=== PATIENT | male | born 1960 | race Caucasian/White ===

== ENCOUNTER 2017-07-19 16:55 | Inpatient (IN) | payer OTHER, MEDICAID ==
[~2017-07-19] VITALS: Ht 180.3 cm; Wt 84.8 kg
[~2017-07-19 16:55] MED LIST: CITA40TA22 PO; POTA-118 PO
[2017-07-19 17:00] VITALS: BP_SYST 124
[2017-07-19] MEDS ORDERED: NACL 0.9% 1,000 ML IV ONE ×2 (17:04→17:30)
[2017-07-19 17:45] LABS: CREATININE 2.3 mg/dL (0.55-1.30); POTASSIUM 4.4 mmol/L (3.5-5.1)
[2017-07-19 17:50] LABS: ALBUMIN 3.2 g/dL (3.4-4.8); TOTAL BILIRUBIN 1.1 mg/dL (0.0-1.0)
[2017-07-19 17:51] LABS: BASOPHILS % (AUTO) 0.3 % (0.0-2.0); EOSINOPHILS # (AUTO) 0.3 K/uL (0.0-0.4); EOSINOPHILS % (AUTO) 3.3 % (0.0-4.0); HEMATOCRIT 32.9 % (36-54); HEMOGLOBIN 11.2 g/dL (14.0-18.0); LYMPHOCYTES % (AUTO) 12.7 % (20.5-51.5); MEAN CORPUSCULAR HEMOGLOBIN 29 pg (27-31); MEAN CORPUSCULAR HGB CONC 34 % (32-36); MEAN CORPUSCULAR VOLUME 86 fL (79.0-98.0); MONOCYTES # (AUTO) 0.1 K/uL (0.0-1.0); MONOCYTES % (AUTO) 1.4 % (1.7-9.3); NEUTROPHILS # (AUTO) 6.8 K/uL (1.8-7.7); NEUTROPHILS % (AUTO) 82.3 % (40.0-70.0); PLATELET COUNT (AUTO) 233 K/uL (130-430); RED BLOOD CELL COUNT(AUTO) 3.83 MIL/uL (4.2-6.2); WHITE BLOOD COUNT (AUTO) 8.2 K/uL (4.8-10.8)
[2017-07-19 19:01] LABS: BILIRUBIN,URINE NEGATIVE (NEGATIVE); BLOOD, URINE NEGATIVE (NEGATIVE); CLARITY/URINE CLEAR (CLEAR); COLOR,URINE YELLOW (YELLOW); GLUCOSE,URINE NEGATIVE (NEGATIVE); KETONES,URINE NEGATIVE (NEGATIVE); LEUKOCYTE ESTERASE ,URINE NEGATIVE (NEGATIVE); NITRITE, URINE NEGATIVE (NEGATIVE); PH,URINE 5.5 (5.0-8.0); PROTEIN URINE NEGATIVE (NEGATIVE); UROBILINOGEN,URINE 0.2 (0.2-1.0)
[2017-07-19] MEDS ORDERED: PRED5TAB PO (19:09)
[2017-07-19] MEDS ORDERED: HYD10 PO (19:09)
[2017-07-19] MEDS ORDERED: COR12.5 PO (19:09)
[2017-07-19] MEDS ORDERED: [UNRECOGNIZED DRUG - CODE] PO (19:10)
[2017-07-19] MEDS ORDERED: ACETAMINOPHEN 325 MG TABLET PO PRN ×2 (19:30→19:45)
[2017-07-19] MEDS ORDERED: MORPHINE 2 MG/ML INJ. SYRINGE IVP PRN ×2 (19:30→19:45)
[2017-07-19] MEDS ORDERED: NACL 0.9% 1,000 ML IV SCH (19:33)
[2017-07-19 20:02] VITALS: BP_SYST 141
[2017-07-19] MEDS ORDERED: DOCUSATE SODIUM 100 MG CAPSULE PO SCH (21:00)
[2017-07-19] MEDS: DOCUSATE SODIUM 100 MG CAPSULE PO SCH (21:00)
[2017-07-19] MEDS ORDERED: BISACODYL 10 MG/SUPPOSITORY RC PRN (21:45)
[2017-07-19] MEDS ORDERED: HYDROcodone/ACETAMIN 10-325 MG TAB PO PRN (21:45)
[2017-07-19] MEDS ORDERED: POTASSIUM CHLORIDE 20 MEQ TAB.PRT.SR PO PRN (21:45)
[2017-07-19] MEDS ORDERED: SIMETHICONE 80 MG TAB.CHEW PO PRN (21:45)
[2017-07-19] MEDS ORDERED: LORazepam 2 MG/ML VIAL IVP PRN (21:45)
[2017-07-19] MEDS: NACL 0.9% 1,000 ML IV SCH (22:42)
[2017-07-19] MEDS: ONDANSETRON HCL 4 MG/2 ML VIAL IVP PRN (22:51)
[2017-07-20 00:59] VITALS: BP_SYST 126
[2017-07-20] MEDS: ZOLPIDEM TARTRATE 5 MG TABLET PO PRN (01:57)
[2017-07-20 04:32] VITALS: BP_SYST 130
[2017-07-20 07:52] LABS: BASOPHILS % (AUTO) 0.4 % (0.0-2.0); EOSINOPHILS # (AUTO) 0.2 K/uL (0.0-0.4); EOSINOPHILS % (AUTO) 2.9 % (0.0-4.0); HEMATOCRIT 30.3 % (36-54); HEMOGLOBIN 9.8 g/dL (14.0-18.0); LYMPHOCYTES # (AUTO) 0.7 K/uL (1.0-5.5); LYMPHOCYTES % (AUTO) 13.2 % (20.5-51.5); MEAN CORPUSCULAR HEMOGLOBIN 28 pg (27-31); MEAN CORPUSCULAR HGB CONC 33 % (32-36); MEAN CORPUSCULAR VOLUME 87 fL (79.0-98.0); MONOCYTES # (AUTO) 0.1 K/uL (0.0-1.0); MONOCYTES % (AUTO) 1.8 % (1.7-9.3); NEUTROPHILS # (AUTO) 4.6 K/uL (1.8-7.7); NEUTROPHILS % (AUTO) 81.7 % (40.0-70.0); PLATELET COUNT (AUTO) 211 K/uL (130-430); RED BLOOD CELL COUNT(AUTO) 3.49 MIL/uL (4.2-6.2); RED CELL DISTRIBUTION WIDTH 13.7 % (9.0-15.0); WHITE BLOOD COUNT (AUTO) 5.6 K/uL (4.8-10.8)
[2017-07-20 08:00] VITALS: BP_SYST 124
[2017-07-20 08:22] LABS: ALBUMIN 2.6 g/dL (3.4-4.8); CALCIUM 7.5 mg/dL (8.4-11.0); CREATININE 2.16 mg/dL (0.55-1.30); FREE T4 (FREE THYROXINE) 0.8 ng/dL (0.6-1.6); POTASSIUM 3.9 mmol/L (3.5-5.1); THYROID STIMULATING HORMONE 0.67 uIu/mL (0.34-4.82); TOTAL BILIRUBIN 0.9 mg/dL (0.0-1.0)
[2017-07-20] MEDS: DOCUSATE SODIUM 100 MG CAPSULE PO SCH ×2 (09:00→21:00)
[2017-07-20] MEDS: NACL 0.9% 1,000 ML IV SCH ×2 (09:26→23:48)
[2017-07-20 12:58] VITALS: BP_SYST 130
[2017-07-20] MEDS ORDERED: [UNRECOGNIZED DRUG - OTHER] PO SCH (13:00)
[2017-07-20] MEDS: HYDROCORTISONE 10 MG TABLET (CORTEF) PO SCH ×2 (15:06→22:06)
[2017-07-20 16:42] VITALS: BP_SYST 138
[2017-07-20] MEDS: CARVEDILOL 12.5 MG TABLET (COREG) PO SCH (17:49)
[2017-07-20] MEDS ORDERED: VANCOMYCIN HCL 1,250 MG in NS 250 ML IV ONE (20:30)
[2017-07-20 22:04] VITALS: BP_SYST 107
[2017-07-20] MEDS: PREDNISONE 5 MG TABLET PO SCH (22:06)
[2017-07-20] MEDS ORDERED: VANCOMYCIN HCL 1000 MG/VIAL IV ONE (22:33)
[2017-07-20] MEDS ORDERED: VANCOMYCIN HCL 500 MG/VIAL IV ONE ×2 (22:33→22:35)
[2017-07-21] VITALS (7 sets, daily range): BP systolic 94–115
[2017-07-21] MEDS: ONDANSETRON HCL 4 MG/2 ML VIAL IVP PRN (00:41)
[2017-07-21] MEDS ORDERED: PIPERACILLIN/TAZOBACTAM 3.375 GM/VIAL (ZOSYN) IV ONE (01:49)
[2017-07-21] MEDS: NACL 0.9% 1,000 ML IV SCH ×4 (02:20→23:07)
[2017-07-21] MEDS: PIPERACILLIN/TAZO 3.375/DEX-IS 50 ML IV SCH ×6 (06:00→23:02)
[2017-07-21 06:07] LABS: HEMOGLOBIN A1C 5.6 % (4.8-5.6)
[2017-07-21 08:06] LABS: T4 (THYROXINE) 2.4 ug/dL (4.5-12.0)
[2017-07-21 08:39] LABS: BASOPHILS % (AUTO) 0.4 % (0.0-2.0); EOSINOPHILS # (AUTO) 0.3 K/uL (0.0-0.4); EOSINOPHILS % (AUTO) 6.3 % (0.0-4.0); HEMATOCRIT 29.9 % (36-54); LYMPHOCYTES # (AUTO) 0.6 K/uL (1.0-5.5); LYMPHOCYTES % (AUTO) 14.8 % (20.5-51.5); MEAN CORPUSCULAR HEMOGLOBIN 29 pg (27-31); MEAN CORPUSCULAR HGB CONC 34 % (32-36); MEAN CORPUSCULAR VOLUME 87 fL (79.0-98.0); MONOCYTES # (AUTO) 0.1 K/uL (0.0-1.0); MONOCYTES % (AUTO) 2.8 % (1.7-9.3); NEUTROPHILS # (AUTO) 3.1 K/uL (1.8-7.7); NEUTROPHILS % (AUTO) 75.7 % (40.0-70.0); PLATELET COUNT (AUTO) 228 K/uL (130-430); RED BLOOD CELL COUNT(AUTO) 3.43 MIL/uL (4.2-6.2); RED CELL DISTRIBUTION WIDTH 13.5 % (9.0-15.0); WHITE BLOOD COUNT (AUTO) 4.1 K/uL (4.8-10.8)
[2017-07-21] MEDS: DOCUSATE SODIUM 100 MG CAPSULE PO SCH ×3 (09:00→20:58)
[2017-07-21] MEDS: POTASSIUM CHLORIDE 10 MEQ TAB.PRT.SR PO SCH (09:06)
[2017-07-21] MEDS: PREDNISONE 5 MG TABLET PO SCH ×2 (09:06→20:58)
[2017-07-21] MEDS: CITALOPRAM HYDROBROMIDE 20 MG TABLET PO SCH (09:06)
[2017-07-21] MEDS: HYDROCORTISONE 10 MG TABLET (CORTEF) PO SCH ×3 (09:06→20:58)
[2017-07-21] MEDS: CARVEDILOL 12.5 MG TABLET (COREG) PO SCH ×2 (09:07→18:05)
[2017-07-21] MEDS ORDERED: VANCOMYCIN HCL 1,000 MG in NS 250 ML IV SCH (14:00)
[2017-07-21] MEDS: ASPIRIN 325 MG TABLET PO PRN (18:05)
[2017-07-21] MEDS: ZOLPIDEM TARTRATE 5 MG TABLET PO PRN (22:52)
[2017-07-22] VITALS: BP_SYST 110; BP_SYST 111
[2017-07-22 04:00] VITALS: BP_SYST 104; BP_SYST 110
[2017-07-22] MEDS: PIPERACILLIN/TAZO 3.375/DEX-IS 50 ML IV SCH ×3 (05:50→17:37)
[2017-07-22 06:32] LABS: BASOPHILS % (AUTO) 0.6 % (0.0-2.0); EOSINOPHILS # (AUTO) 0.3 K/uL (0.0-0.4); HEMATOCRIT 25.6 % (36-54); HEMOGLOBIN 8.5 g/dL (14.0-18.0); LYMPHOCYTES # (AUTO) 0.7 K/uL (1.0-5.5); LYMPHOCYTES % (AUTO) 23.2 % (20.5-51.5); MEAN CORPUSCULAR HEMOGLOBIN 29 pg (27-31); MEAN CORPUSCULAR HGB CONC 33 % (32-36); MEAN CORPUSCULAR VOLUME 87 fL (79.0-98.0); MONOCYTES # (AUTO) 0.2 K/uL (0.0-1.0); MONOCYTES % (AUTO) 6.7 % (1.7-9.3); NEUTROPHILS # (AUTO) 1.8 K/uL (1.8-7.7); NEUTROPHILS % (AUTO) 58.5 % (40.0-70.0); PLATELET COUNT (AUTO) 218 K/uL (130-430); RED BLOOD CELL COUNT(AUTO) 2.95 MIL/uL (4.2-6.2); RED CELL DISTRIBUTION WIDTH 13.8 % (9.0-15.0)
[2017-07-22 08:00] VITALS: BP_SYST 107
[2017-07-22] MEDS: CITALOPRAM HYDROBROMIDE 20 MG TABLET PO SCH (08:35)
[2017-07-22] MEDS: CARVEDILOL 12.5 MG TABLET (COREG) PO SCH ×2 (08:35→17:38)
[2017-07-22] MEDS: HYDROCORTISONE 10 MG TABLET (CORTEF) PO SCH ×3 (08:36→21:11)
[2017-07-22] MEDS: DOCUSATE SODIUM 100 MG CAPSULE PO SCH ×3 (08:36→21:11)
[2017-07-22] MEDS: PREDNISONE 5 MG TABLET PO SCH ×2 (08:36→21:11)
[2017-07-22] MEDS: POTASSIUM CHLORIDE 10 MEQ TAB.PRT.SR PO SCH (08:36)
[2017-07-22] MEDS: NACL 0.9% 1,000 ML IV SCH ×3 (08:37→23:48)
[2017-07-22 12:41] VITALS: BP_SYST 104
[2017-07-22] MEDS: ASPIRIN 325 MG TABLET PO PRN (15:56)
[2017-07-22 16:31] VITALS: BP_SYST 114
[2017-07-22 23:58] VITALS: BP_SYST 127
[2017-07-23] MEDS: PIPERACILLIN/TAZO 3.375/DEX-IS 50 ML IV SCH ×4 (00:11→18:35)
[2017-07-23 04:01] VITALS: BP_SYST 127
[2017-07-23 06:19] LABS: HEMOGLOBIN 8.2 g/dL (14.0-18.0); MEAN CORPUSCULAR HEMOGLOBIN 28 pg (27-31); MEAN CORPUSCULAR HGB CONC 33 % (32-36); MEAN CORPUSCULAR VOLUME 86 fL (79.0-98.0); PLATELET COUNT (AUTO) 268 K/uL (130-430); RED CELL DISTRIBUTION WIDTH 13.9 % (9.0-15.0); WHITE BLOOD COUNT (AUTO) 2.8 K/uL (4.8-10.8)
[2017-07-23 07:46] VITALS: BP_SYST 138
[2017-07-23 08:00] VITALS: BP_SYST 138
[2017-07-23 08:19] LABS: LYMPHOCYTES % (MANUAL) 17 % (20-46)
[2017-07-23 08:20] LABS: BASOPHILS % (MANUAL) 0 % (0-2); EOSINOPHILS % (MANUAL) 13 % (0-7); MONOCYTES % (MANUAL) 5 % (0-11)
[2017-07-23] MEDS: [UNRECOGNIZED DRUG - OTHER] PO SCH ×4 (09:00→21:55)
[2017-07-23] MEDS: DOCUSATE SODIUM 100 MG CAPSULE PO SCH ×2 (09:00→21:00)
[2017-07-23] MEDS: PREDNISONE 5 MG TABLET PO SCH ×2 (09:48→21:55)
[2017-07-23] MEDS: CITALOPRAM HYDROBROMIDE 20 MG TABLET PO SCH (09:48)
[2017-07-23] MEDS: HYDROCORTISONE 10 MG TABLET (CORTEF) PO SCH ×3 (09:49→21:55)
[2017-07-23] MEDS: CARVEDILOL 12.5 MG TABLET (COREG) PO SCH ×2 (09:49→18:36)
[2017-07-23] MEDS: POTASSIUM CHLORIDE 10 MEQ TAB.PRT.SR PO SCH (09:49)
[2017-07-23 11:13] VITALS: BP_SYST 128
[2017-07-23] MEDS: NACL 0.9% 1,000 ML IV SCH (14:06)
[2017-07-23] MEDS: ASPIRIN 325 MG TABLET PO PRN (16:01)
[2017-07-23 16:15] VITALS: BP_SYST 130
[2017-07-23 23:56] VITALS: BP_SYST 122
[2017-07-24] MEDS: PIPERACILLIN/TAZO 3.375/DEX-IS 50 ML IV SCH ×2 (00:16→06:51)
[2017-07-24 04:26] VITALS: BP_SYST 133
[2017-07-24] MEDS: NACL 0.9% 1,000 ML IV SCH (04:49)
[2017-07-24 06:33] LABS: BASOPHILS % (AUTO) 0.7 % (0.0-2.0); EOSINOPHILS # (AUTO) 0.3 K/uL (0.0-0.4); EOSINOPHILS % (AUTO) 8.6 % (0.0-4.0); HEMOGLOBIN 8.5 g/dL (14.0-18.0); LYMPHOCYTES # (AUTO) 0.9 K/uL (1.0-5.5); LYMPHOCYTES % (AUTO) 25.9 % (20.5-51.5); MEAN CORPUSCULAR HEMOGLOBIN 29 pg (27-31); MEAN CORPUSCULAR HGB CONC 33 % (32-36); MEAN CORPUSCULAR VOLUME 88 fL (79.0-98.0); MONOCYTES # (AUTO) 0.3 K/uL (0.0-1.0); MONOCYTES % (AUTO) 8.1 % (1.7-9.3); NEUTROPHILS # (AUTO) 2.2 K/uL (1.8-7.7); NEUTROPHILS % (AUTO) 56.7 % (40.0-70.0); PLATELET COUNT (AUTO) 298 K/uL (130-430); RED BLOOD CELL COUNT(AUTO) 2.98 MIL/uL (4.2-6.2); RED CELL DISTRIBUTION WIDTH 13.9 % (9.0-15.0); WHITE BLOOD COUNT (AUTO) 3.7 K/uL (4.8-10.8)
[2017-07-24 08:16] VITALS: BP_SYST 149
[2017-07-24] MEDS: CITALOPRAM HYDROBROMIDE 20 MG TABLET PO SCH (08:21)
[2017-07-24] MEDS: HYDROCORTISONE 10 MG TABLET (CORTEF) PO SCH (08:22)
[2017-07-24] MEDS: POTASSIUM CHLORIDE 10 MEQ TAB.PRT.SR PO SCH (08:23)
[2017-07-24] MEDS: DOCUSATE SODIUM 100 MG CAPSULE PO SCH (08:24)
[2017-07-24] MEDS: PREDNISONE 5 MG TABLET PO SCH (08:24)
[2017-07-24] MEDS: CARVEDILOL 12.5 MG TABLET (COREG) PO SCH (08:25)
[2017-07-24] MEDS: [UNRECOGNIZED DRUG - OTHER] PO SCH (08:27)
[2017-07-24] MEDS ORDERED: LEVO250T20 PO (09:19)
[2017-07-24] MEDS ORDERED: DOXY100T2 PO (09:19)
[2017-07-24 11:15] VITALS: BP_SYST 139
[2017-07-24 12:16] VITALS: BP_SYST 134
== END 2017-07-24 13:16 | disposition home or self-care (01) | DRG 177 ==
LOC: SED 16:55 → STU 19:26 → SMU 07-20 14:16
PROVIDERS: ADMIT Family Medicine; ATTEND Family Medicine
DX: J69.0 Pneumonitis due to inhalation of food and vomit (principal); E43 Unspecified severe protein-calorie malnutrition; N17.0 Acute kidney failure with tubular necrosis; D89.9 Disorder involving the immune mechanism, unspecified; C78.7 Secondary malignant neoplasm of liver and intrahepatic bile duct; R78.81 Bacteremia; C74.90 Malignant neoplasm of unspecified part of unspecified adrenal gland; R16.0 Hepatomegaly, not elsewhere classified; E87.1 Hypo-osmolality and hyponatremia; N13.30 Unspecified hydronephrosis; B96.89 Other specified bacterial agents as the cause of diseases classified elsewhere; E86.0 Dehydration; N13.9 Obstructive and reflux uropathy, unspecified; G89.4 Chronic pain syndrome; I10 Essential (primary) hypertension; R33.9 Retention of urine, unspecified; F32.9 Major depressive disorder, single episode, unspecified; Z79.899 Other long term (current) drug therapy; Z91.010 Allergy to peanuts; Z68.26 Body mass index [BMI] 26.0-26.9, adult
CPT/HCPCS: 36415; 71010; 71250-TC; 80053; 80061; 81003; 82150-TC; 83036; 83605; 83690-TC; 83735-TC; 83880; 84100-TC; 84436; 84439; 84443-TC; 84479; 85007; 85025; 85027; 85610-TC; 86635; 86738; 87040-TC; 87070-TC; 87081; 87101; 87205-TC; 87305; 93306; 96360; 96361; 99285; J0696; J2405; J2543; J3370; J7030; J7050; J7060; J7512

== ENCOUNTER 2017-10-21 00:24 | Inpatient (IN) | payer OTHER, MEDICAID ==
[~2017-10-21] VITALS: Ht 180.3 cm; Wt 89.4 kg
[2017-10-21 00:24] VITALS: BP_SYST 120
[~2017-10-21 00:24] MED LIST changes: +ASPI-862 PO; +COR12.5 PO; +DEC4 PO; +HYD10 PO; -POTA-118 PO; +PRED5TAB PO; +PROCHLORPER PO; +[UNRECOGNIZED DRUG - CODE] PO
[2017-10-21] MEDS ORDERED: NACL 0.9% 1,000 ML IV SCH (01:21)
[2017-10-21 01:40] LABS: BILIRUBIN,URINE NEGATIVE (NEGATIVE); BLOOD, URINE 3+ (NEGATIVE); CLARITY/URINE CLEAR (CLEAR); COLOR,URINE YELLOW (YELLOW); GLUCOSE,URINE NEGATIVE (NEGATIVE); KETONES,URINE NEGATIVE (NEGATIVE); LEUKOCYTE ESTERASE ,URINE NEGATIVE (NEGATIVE); NITRITE, URINE NEGATIVE (NEGATIVE); PROTEIN URINE TRACE (NEGATIVE); UROBILINOGEN,URINE 0.2 (0.2-1.0)
[2017-10-21 01:40] LABS: BASOPHILS % (AUTO) 0.2 % (0.0-2.0); EOSINOPHILS # (AUTO) 0.1 K/uL (0.0-0.4); EOSINOPHILS % (AUTO) 1.2 % (0.0-4.0); HEMATOCRIT 35.9 % (36-54); HEMOGLOBIN 11.9 g/dL (14.0-18.0); LYMPHOCYTES # (AUTO) 0.4 K/uL (1.0-5.5); LYMPHOCYTES % (AUTO) 5.9 % (20.5-51.5); MEAN CORPUSCULAR HEMOGLOBIN 31 pg (27-31); MEAN CORPUSCULAR HGB CONC 33 % (32-36); MEAN CORPUSCULAR VOLUME 92 fL (79.0-98.0); MONOCYTES # (AUTO) 0.4 K/uL (0.0-1.0); MONOCYTES % (AUTO) 6.5 % (1.7-9.3); NEUTROPHILS # (AUTO) 5.5 K/uL (1.8-7.7); NEUTROPHILS % (AUTO) 86.2 % (40.0-70.0); PLATELET COUNT (AUTO) 192 K/uL (130-430); RED BLOOD CELL COUNT(AUTO) 3.89 MIL/uL (4.2-6.2); RED CELL DISTRIBUTION WIDTH 15.7 % (9.0-15.0); WHITE BLOOD COUNT (AUTO) 6.4 K/uL (4.8-10.8)
[2017-10-21 01:42] LABS: CALCIUM 8.1 mg/dL (8.4-11.0); CREATININE 1.71 mg/dL (0.55-1.30)
[2017-10-21 01:45] LABS: BACTERIA,URINE MODERATE /HPF (None Seen); MUCUS,URINE 1+ /LPF (None Seen); RBC,URINE 20-50 /HPF (0-3); WBC,URINE 0-3 /HPF (0-3)
[2017-10-21 01:48] LABS: ALBUMIN 2.5 g/dL (3.4-4.8); TOTAL BILIRUBIN 0.2 mg/dL (0.0-1.0)
[2017-10-21] MEDS ORDERED: PROC10TA13 PO (03:04)
[2017-10-21] MEDS ORDERED: L.RH1CAP PO (03:04)
[2017-10-21] MEDS ORDERED: methylPREDNISolone SOD SUCC/PF 62.5 MG/ML VIAL IVP ONE (03:45)
[2017-10-21] MEDS ORDERED: LEVOFLOXACIN 500 MG/D5W 100 ML IV ONE ×2 (04:00→05:19)
[2017-10-21] MEDS ORDERED: cefTRIAXone 1 GM in D5W 50 ML IV ONE (04:00)
[2017-10-21 04:17] VITALS: BP_SYST 134
[2017-10-21] MEDS: NACL 0.9% 1,000 ML IV SCH ×2 (04:42→14:07)
[2017-10-21] MEDS ORDERED: cefTRIAXone 1 GM IVPB PREMIX 50 ML IV ONE (05:20)
[2017-10-21 08:00] VITALS: BP_SYST 137
[2017-10-21] MEDS: CARVEDILOL 12.5 MG TABLET (COREG) PO SCH ×2 (08:23→17:15)
[2017-10-21] MEDS: DECADRON 4 MG TABLET PO SCH ×2 (08:24→21:05)
[2017-10-21] MEDS: HYDROCORTISONE 10 MG TABLET (CORTEF) PO SCH ×3 (08:24→21:05)
[2017-10-21] MEDS: ASPIRIN 325 MG TABLET (ECOTRIN) PO SCH (08:24)
[2017-10-21] MEDS: LACTOBACILLUS RHAMNOSUS GG 1 CAP CAPSULE PO SCH (08:24)
[2017-10-21] MEDS: PROCHLORPERAZINE MALEATE 10 MG TABLET PO SCH ×3 (08:24→21:06)
[2017-10-21] MEDS: CITALOPRAM HYDROBROMIDE 20 MG TABLET PO SCH (08:24)
[2017-10-21] MEDS: PREDNISONE 5 MG TABLET PO SCH ×2 (08:25→21:05)
[2017-10-21] MEDS: [UNRECOGNIZED DRUG - OTHER] PO SCH ×4 (09:00→21:07)
[2017-10-21 12:15] VITALS: BP_SYST 109
[2017-10-21 16:14] VITALS: BP_SYST 127
[2017-10-21 20:00] VITALS: BP_SYST 108
[2017-10-21] MEDS ORDERED: cefTRIAXone 1 GM in D5W 50 ML IV SCH (21:00)
[2017-10-22 00:21] VITALS: BP_SYST 117
[2017-10-22] MEDS: NACL 0.9% 1,000 ML IV SCH (04:13)
[2017-10-22 06:15] LABS: BASOPHILS % (AUTO) 0.2 % (0.0-2.0); EOSINOPHILS # (AUTO) 0.1 K/uL (0.0-0.4); HEMATOCRIT 37.7 % (36-54); HEMOGLOBIN 12.5 g/dL (14.0-18.0); LYMPHOCYTES # (AUTO) 0.7 K/uL (1.0-5.5); LYMPHOCYTES % (AUTO) 9.8 % (20.5-51.5); MEAN CORPUSCULAR HEMOGLOBIN 31 pg (27-31); MEAN CORPUSCULAR HGB CONC 33 % (32-36); MEAN CORPUSCULAR VOLUME 94 fL (79.0-98.0); MONOCYTES # (AUTO) 0.6 K/uL (0.0-1.0); MONOCYTES % (AUTO) 7.6 % (1.7-9.3); NEUTROPHILS # (AUTO) 5.9 K/uL (1.8-7.7); NEUTROPHILS % (AUTO) 81.4 % (40.0-70.0); PLATELET COUNT (AUTO) 206 K/uL (130-430); RED BLOOD CELL COUNT(AUTO) 4.01 MIL/uL (4.2-6.2); WHITE BLOOD COUNT (AUTO) 7.3 K/uL (4.8-10.8)
[2017-10-22 06:35] LABS: ALBUMIN 2.6 g/dL (3.4-4.8); CALCIUM 9.1 mg/dL (8.4-11.0); CREATININE 1.75 mg/dL (0.55-1.30); FREE T4 (FREE THYROXINE) 0.8 ng/dL (0.6-1.6); TOTAL BILIRUBIN 0.1 mg/dL (0.0-1.0)
[2017-10-22 08:00] VITALS: BP_SYST 117
[2017-10-22] MEDS ORDERED: LEVOFLOXACIN 500 MG/D5W 100 ML IV SCH (09:00)
[2017-10-22] MEDS: HYDROCORTISONE 10 MG TABLET (CORTEF) PO SCH (09:14)
[2017-10-22] MEDS: DECADRON 4 MG TABLET PO SCH (09:14)
[2017-10-22] MEDS: LACTOBACILLUS RHAMNOSUS GG 1 CAP CAPSULE PO SCH (09:14)
[2017-10-22] MEDS: ASPIRIN 325 MG TABLET (ECOTRIN) PO SCH (09:14)
[2017-10-22] MEDS: CITALOPRAM HYDROBROMIDE 20 MG TABLET PO SCH (09:14)
[2017-10-22] MEDS: CARVEDILOL 12.5 MG TABLET (COREG) PO SCH (09:15)
[2017-10-22] MEDS: [UNRECOGNIZED DRUG - OTHER] PO SCH ×2 (09:16→14:42)
[2017-10-22] MEDS: PREDNISONE 5 MG TABLET PO SCH (09:23)
[2017-10-22] MEDS: PROCHLORPERAZINE MALEATE 10 MG TABLET PO SCH ×2 (09:35→14:42)
[2017-10-22 12:00] VITALS: BP_SYST 124
[2017-10-22 15:58] VITALS: BP_SYST 135
[2017-10-22 16:33] VITALS: BP_SYST 117
== END 2017-10-22 19:54 | disposition home or self-care (01) | DRG 871 ==
LOC: SED 00:24 → SMU 03:33
PROVIDERS: ADMIT Internal Medicine; ATTEND Internal Medicine
DX: A41.9 Sepsis, unspecified organism (principal); E43 Unspecified severe protein-calorie malnutrition; C78.7 Secondary malignant neoplasm of liver and intrahepatic bile duct; E89.6 Postprocedural adrenocortical (-medullary) hypofunction; N31.9 Neuromuscular dysfunction of bladder, unspecified; N39.0 Urinary tract infection, site not specified; E86.0 Dehydration; I12.9 Hypertensive chronic kidney disease with stage 1 through stage 4 chronic kidney disease, or unspecified chronic kidney disease; N18.9 Chronic kidney disease, unspecified; F32.9 Major depressive disorder, single episode, unspecified; F41.9 Anxiety disorder, unspecified; Z68.27 Body mass index [BMI] 27.0-27.9, adult; E66.9 Obesity, unspecified; Z91.010 Allergy to peanuts; Z79.899 Other long term (current) drug therapy; Z79.82 Long term (current) use of aspirin; Z85.858 Personal history of malignant neoplasm of other endocrine glands; Z90.5 Acquired absence of kidney; Z92.21 Personal history of antineoplastic chemotherapy
CPT/HCPCS: 36415; 80053; 81000-TC; 83605; 84439; 85025; 87040-TC; 87081; 87086; 96360; 99285; J0696; J1956; J2930; J7030; J7040; J7060; J7512; J8540; Q0164

== ENCOUNTER 2017-10-27 14:55 | Emergency (ER) | payer OTHER, MEDICAID ==
[~2017-10-27] VITALS: Ht 180.3 cm; Wt 88.5 kg
[~2017-10-27 14:55] MED LIST changes: +L.RH1CAP PO; +PROC10TA PO
[2017-10-27 15:02] VITALS: BP_SYST 118
--- NOTE | 2017-10-27 15:12 | NUR ---
Patient to ER bed 6 to gown for evaluation. Side rails up. Report given to Melo MCCORMACK.
--- NOTE | 2017-10-27 15:13 | NUR ---
ER at bedside examining patient.
--- NOTE | 2017-10-27 15:15 | NUR ---
Pt presents to ER c/o suspected UTI. Pt also c/o nausea, general weakness. Pt denies any pain but c/o tightness in abdomen. Pt reports that he was admitted to [facility] recently for UTI and has had UTI x 3 times since New Years Marcy. Pt reports history of adrenal carcinoma, HTN. Pt in no acute distress, respirations even and unlabored, VSS, AOX4.
[2017-10-27 15:35] LABS: BASOPHILS % (AUTO) 0.3 % (0.0-2.0); EOSINOPHILS % (AUTO) 0.8 % (0.0-4.0); HEMATOCRIT 37.8 % (36-54); HEMOGLOBIN 12.6 g/dL (14.0-18.0); LYMPHOCYTES # (AUTO) 0.4 K/uL (1.0-5.5); LYMPHOCYTES % (AUTO) 6.4 % (20.5-51.5); MEAN CORPUSCULAR HEMOGLOBIN 31 pg (27-31); MEAN CORPUSCULAR HGB CONC 33 % (32-36); MEAN CORPUSCULAR VOLUME 91 fL (79.0-98.0); MONOCYTES # (AUTO) 0.4 K/uL (0.0-1.0); MONOCYTES % (AUTO) 6.7 % (1.7-9.3); NEUTROPHILS # (AUTO) 5.1 K/uL (1.8-7.7); NEUTROPHILS % (AUTO) 85.8 % (40.0-70.0); PLATELET COUNT (AUTO) 233 K/uL (130-430); RED BLOOD CELL COUNT(AUTO) 4.15 MIL/uL (4.2-6.2); RED CELL DISTRIBUTION WIDTH 14.4 % (9.0-15.0); WHITE BLOOD COUNT (AUTO) 5.9 K/uL (4.8-10.8)
--- NOTE | 2017-10-27 15:40 | NUR ---
# 20 gauge angiocath placed to LAC. Use of asceptic technique. Opsite placed over site. Blood return noted. Flushed with 10 cc of normal saline. No evidence of infiltration noted. Patient tolerated well.
[2017-10-27 15:49] LABS: CALCIUM 8.6 mg/dL (8.4-11.0); CREATININE 2.06 mg/dL (0.55-1.30); INR 0.9 (0.80-1.20); POTASSIUM 4.9 mmol/L (3.5-5.1); PROTHROMBIN TIME 9.5 SECS (9.5-12.5)
[2017-10-27 15:53] LABS: ALBUMIN 2.7 g/dL (3.4-4.8); TOTAL BILIRUBIN 0.2 mg/dL (0.0-1.0)
[2017-10-27 15:56] LABS: BILIRUBIN,URINE NEGATIVE (NEGATIVE); BLOOD, URINE 3+ (NEGATIVE); CLARITY/URINE SL HAZY (CLEAR); COLOR,URINE YELLOW (YELLOW); GLUCOSE,URINE NEGATIVE (NEGATIVE); KETONES,URINE NEGATIVE (NEGATIVE); LEUKOCYTE ESTERASE ,URINE NEGATIVE (NEGATIVE); NITRITE, URINE NEGATIVE (NEGATIVE); PROTEIN URINE TRACE (NEGATIVE); UROBILINOGEN,URINE 0.2 (0.2-1.0)
[2017-10-27 16:28] LABS: BACTERIA,URINE FEW /HPF (None Seen); WBC,URINE 0-3 /HPF (0-3)
[2017-10-27 16:29] LABS: URIC ACID CRYSTALS,URINE 0-10 /HPF (None Seen)
--- NOTE | 2017-10-27 16:49 | NUR ---
Dr. Llamas ok'd pt's discharge. Awaiting for pt to arrange ride home. Pt making phone call to neighbor to arrange for ride home.
[2017-10-27 17:05] VITALS: BP_SYST 135
--- NOTE | 2017-10-27 17:05 | NUR ---
Patient given written and verbal discharge instructions and verbalizes understanding. ER MD discussed with patient the results and treatment provided. Patient in stable condition. ID arm band removed. IV catheter removed intact and dressing applied, no active bleeding. No Rx given. Patient educated on pain management and to follow up with PMD. Pain Scale 0/10. Opportunity for questions provided and answered.
== END 2017-10-27 17:05 | disposition home or self-care (01) ==
LOC: SED 14:55
DX: N39.0 Urinary tract infection, site not specified (principal); I10 Essential (primary) hypertension; Z91.010 Allergy to peanuts; Z79.82 Long term (current) use of aspirin; Z79.899 Other long term (current) drug therapy; Z98.890 Other specified postprocedural states
CPT/HCPCS: 36415; 80053; 81000-TC; 82150-TC; 83690-TC; 85025; 85610-TC; 85730-TC; 99284

== ENCOUNTER 2018-01-18 00:02 | Emergency (ER) | payer OTHER, MEDICAID ==
[~2018-01-18] VITALS: Ht 175.3 cm; Wt 81.6 kg
[2018-01-18 00:10] VITALS: BP_SYST 147
[2018-01-18] MEDS ORDERED: NACL 0.9% 1,000 ML IV ONE ×2 (00:15→00:30)
[2018-01-18] MEDS ORDERED: MORPHINE 4 MG/ML INJ. SYRINGE IVP ONE (00:45)
[2018-01-18] MEDS ORDERED: ONDANSETRON HCL 4 MG/2 ML VIAL IVP ONE (00:45)
[2018-01-18] MEDS ORDERED: MORPHINE 2 MG/ML INJ. SYRINGE IVP ONE (00:45)
[2018-01-18 01:02] LABS: BASOPHILS # (AUTO) 0.1 K/uL (0.0-0.2); BASOPHILS % (AUTO) 0.7 % (0.0-2.0); EOSINOPHILS # (AUTO) 0.1 K/uL (0.0-0.4); EOSINOPHILS % (AUTO) 1.5 % (0.0-4.0); HEMATOCRIT 38.2 % (36-54); HEMOGLOBIN 12.8 g/dL (14.0-18.0); LYMPHOCYTES # (AUTO) 1.5 K/uL (1.0-5.5); LYMPHOCYTES % (AUTO) 20.4 % (20.5-51.5); MEAN CORPUSCULAR HEMOGLOBIN 30 pg (27-31); MEAN CORPUSCULAR HGB CONC 34 % (32-36); MEAN CORPUSCULAR VOLUME 90 fL (79.0-98.0); MONOCYTES # (AUTO) 0.6 K/uL (0.0-1.0); MONOCYTES % (AUTO) 8.8 % (1.7-9.3); NEUTROPHILS % (AUTO) 68.6 % (40.0-70.0); PLATELET COUNT (AUTO) 253 K/uL (130-430); RED BLOOD CELL COUNT(AUTO) 4.23 MIL/uL (4.2-6.2); RED CELL DISTRIBUTION WIDTH 14.2 % (9.0-15.0); WHITE BLOOD COUNT (AUTO) 7.3 K/uL (4.8-10.8)
[2018-01-18] MEDS ORDERED: LORazepam 2 MG/ML VIAL (FOR ER USE) IVP ONE (01:15)
[2018-01-18 01:16] LABS: CREATININE 1.54 mg/dL (0.55-1.30); POTASSIUM 3.6 mmol/L (3.5-5.1)
[2018-01-18 01:18] LABS: PROTHROMBIN TIME 9.8 SECS (9.5-12.5)
[2018-01-18 01:22] LABS: ALBUMIN 2.6 g/dL (3.4-4.8)
[2018-01-18 02:03] LABS: BILIRUBIN,URINE 2+ (NEGATIVE); BLOOD, URINE 3+ (NEGATIVE); CLARITY/URINE SL CLOUDY (CLEAR); COLOR,URINE YELLOW (YELLOW); GLUCOSE,URINE NEGATIVE (NEGATIVE); KETONES,URINE 2+ (NEGATIVE); LEUKOCYTE ESTERASE ,URINE 2+ (NEGATIVE); NITRITE, URINE NEGATIVE (NEGATIVE); PROTEIN URINE 2+ (NEGATIVE); UROBILINOGEN,URINE 0.2 (0.2-1.0)
[2018-01-18 02:11] LABS: BACTERIA,URINE MANY /HPF (None Seen); WBC,URINE 50-80 /HPF (0-3)
[2018-01-18 02:12] LABS: MUCUS,URINE None Seen /LPF (None Seen)
[2018-01-18] MEDS ORDERED: LEVOFLOXACIN 500 MG/D5W 100 ML IV ONE (02:15)
[2018-01-18 03:51] VITALS: BP_SYST 118
== END 2018-01-18 03:51 | disposition home or self-care (01) ==
LOC: SED 00:02
DX: N39.0 Urinary tract infection, site not specified (principal); N28.9 Disorder of kidney and ureter, unspecified; C79.70 Secondary malignant neoplasm of unspecified adrenal gland; I10 Essential (primary) hypertension; Z88.8 Allergy status to other drugs, medicaments and biological substances; Z79.899 Other long term (current) drug therapy
CPT/HCPCS: 36415; 51702; 71045; 74176; 80053; 81000; 83605; 85025; 85610; 85730; 87040; 87086; 87186; 93005; 96361; 96365; 96375; 99285; J1956; J2060; J2270; J2405; J7030

== ENCOUNTER 2018-01-19 15:13 | Inpatient (IN) | payer OTHER, MEDICAID ==
[~2018-01-19] VITALS: Ht 182.9 cm; Wt 86.2 kg
[2018-01-19 15:16] VITALS: BP_SYST 136
--- NOTE | 2018-01-19 15:16 | NUR ---
Placed in room 01 . Placed on monitoring tech, blood pressure machine and pulse oximeter. To gown for exam. Side rails up.
--- NOTE | 2018-01-19 15:20 | NUR ---
Pt AAOx1 with hx of L adrenal CA stage 4 on hospice care BIB ACLS from home s/p pt's family noticing he was altered from baseline today. Pt lethargic and nonverbal during interview, able to nod and shake head to answer questions. Pt was seen last night for abdominal pain/diarrhea, tx with levaquin and discharged back home. Pt arrived with valerio in place with no valerio bag attached. Per ACLS, bag was on floor when picked up from home. Pt denies pain tenzin. No other injuries/complaints per pt/noted. Will continue to monitor.
[2018-01-19] MEDS ORDERED: NACL 0.9% 1,000 ML IV ONE ×2 (15:30→18:00)
--- NOTE | 2018-01-19 15:30 | NUR ---
Medication reconciliation completed with information provided by pt. Any prior medication reconciliation on file was reviewed and corrected.
--- NOTE | 2018-01-19 15:35 | NUR ---
[facility] called to report pt sent to ED for evaluation of ALOC. Awaiting call from [facility].
[2018-01-19 15:50] LABS: BASOPHILS % (AUTO) 0.5 % (0.0-2.0); EOSINOPHILS # (AUTO) 0.1 K/uL (0.0-0.4); EOSINOPHILS % (AUTO) 1.7 % (0.0-4.0); HEMATOCRIT 34.5 % (36-54); HEMOGLOBIN 11.9 g/dL (14.0-18.0); LYMPHOCYTES # (AUTO) 0.8 K/uL (1.0-5.5); LYMPHOCYTES % (AUTO) 13.3 % (20.5-51.5); MEAN CORPUSCULAR HEMOGLOBIN 32 pg (27-31); MEAN CORPUSCULAR HGB CONC 35 % (32-36); MEAN CORPUSCULAR VOLUME 91 fL (79.0-98.0); MONOCYTES # (AUTO) 0.8 K/uL (0.0-1.0); MONOCYTES % (AUTO) 12.7 % (1.7-9.3); NEUTROPHILS # (AUTO) 4.6 K/uL (1.8-7.7); NEUTROPHILS % (AUTO) 71.8 % (40.0-70.0); PLATELET COUNT (AUTO) 194 K/uL (130-430); RED BLOOD CELL COUNT(AUTO) 3.79 MIL/uL (4.2-6.2); WHITE BLOOD COUNT (AUTO) 6.3 K/uL (4.8-10.8)
--- NOTE | 2018-01-19 15:52 | NUR ---
Spoke to Farida Saha RN from [facility]. Will all family to get advisement for POC. [facility] to call back after family discussion.
--- NOTE | 2018-01-19 15:56 | NUR ---
# 16 FR Valerio catheter with use of sterile technique. Immediate return of 10 cc zahra urine noted. Bedside drainage bag placed below level of bladder. Pt tolerated procedure well. Patient arrived with valerio in place, changed due to standard of practice. Patient unable to toilet self.
[2018-01-19] MEDS ORDERED: IBUPROFEN 600 MG TABLET PO ONE (16:00)
[2018-01-19 16:07] LABS: CALCIUM 9.3 mg/dL (8.4-11.0); CREATININE 1.9 mg/dL (0.55-1.30); POTASSIUM 3.6 mmol/L (3.5-5.1)
[2018-01-19 16:10] LABS: PROTHROMBIN TIME 10.2 SECS (9.5-12.5)
[2018-01-19 16:12] LABS: ALBUMIN 2.4 g/dL (3.4-4.8); TOTAL BILIRUBIN 1.7 mg/dL (0.0-1.0)
--- NOTE | 2018-01-19 16:14 | NUR ---
Per [facility]CCORM[facility]. Steph Saha, pt will be revoked from hospice. Pt is Full code per sister, Yenny Martínez.
[2018-01-19 16:40] LABS: BILIRUBIN,URINE 2+ (NEGATIVE); BLOOD, URINE 3+ (NEGATIVE); CLARITY/URINE CLEAR (CLEAR); COLOR,URINE YELLOW (YELLOW); GLUCOSE,URINE NEGATIVE (NEGATIVE); KETONES,URINE 2+ (NEGATIVE); LEUKOCYTE ESTERASE ,URINE 1+ (NEGATIVE); NITRITE, URINE NEGATIVE (NEGATIVE); PROTEIN URINE 2+ (NEGATIVE)
[2018-01-19 16:48] LABS: BACTERIA,URINE MODERATE /HPF (None Seen)
[2018-01-19] MEDS ORDERED: cefTRIAXone 1 GM in D5W 50 ML IV ONE ×2 (17:15→17:30)
[2018-01-19] MEDS ORDERED: cefTRIAXone 1 GM VIAL ONE (17:31)
--- NOTE | 2018-01-19 17:42 | NUR ---
ADMISSION NOTE Received patient from ER via gurney, Patient admitted with diagnosis of Sepsis. Patient oriented to hospital routine, call light, and safety-patient verbalized understanding.
--- NOTE | 2018-01-19 17:52 | NUR ---
Patient will be admitted to [facility]. Admitted to Tele unit. Will go to room 121C. Summary report printed. Report will be given at bedside.
[2018-01-19] MEDS ORDERED: LOPERAMIDE HCL 2 MG CAPSULE PO PRN (18:00)
[2018-01-19 18:09] VITALS: BP_SYST 100
[2018-01-19] MEDS ORDERED: ACETAMINOPHEN 325 MG TABLET PO PRN (18:15)
[2018-01-19] MEDS ORDERED: ZOLPIDEM TARTRATE 5 MG TABLET PO PRN (18:15)
--- NOTE | 2018-01-19 18:25 | NUR ---
Note Rec'd report from Jimena hansen RN, for continuation of care. Pt sitting up in bed eating his dinner. Pt has Dimas catheter and IV in wrist, which has Rocephin IVPB running from ED at this time. Pt next to nurses' station for close observation. Pt has been oriented to nursing routines and procedures. Questions/concerns were answered at this time. Call light within reach. Pt has tele unit attached on arrival to floor/room. Call light within reach.
[2018-01-19] MEDS: metroNIDAZOLE 500 mg/NS 100 ML IV SCH (19:11)
--- NOTE | 2018-01-19 19:50 | NUR ---
INITIAL NOTES PATIENT ON BED AWAKE AND RESTING A/O X1 MAINTAINED ON SEMI GRIGGS'S POSITION, MAINTAINED POSITION OF COMFORT, BREATHING EVEN AND UNLABORED, NO SOB NOTED, NO PAIN NOTED. WITH IV ON THE LFA 20 G CLEAN DRY INTACT INFUSING WELL, WITH YEBOAH DRAINING TO GRAVITY INFUSING WELL. MAINTAINED SAFETY PRECAUTION, BED ON THE LOWEST POSITION BED ALARM MAINTAINED. EXPLAINED THE PLAN OF CARE AND VERBALIZED UNDERSTANDING. AM NURSE TALKED TO THE SISTER AND EXPLAINED THAT SHE WILL BRING THE MEDICINE MITOTANE IN THE MORNING. WILL CONTINUE TO MONITOR. CALL LIGHT WITHIN REACH.
--- NOTE | 2018-01-19 19:57 | NUR ---
Note Spoke to pt's sister Yenny [place] about medication Mitotane 500mg. Yenny will bring medication in tomorrow.
[2018-01-19 20:00] VITALS: BP_SYST 120
[2018-01-19] MEDS: NACL 0.9% 1,000 ML IV SCH (20:46)
[2018-01-19] MEDS: CARVEDILOL 12.5 MG TABLET (COREG) PO SCH (20:46)
[2018-01-19] MEDS: HYDROCORTISONE 10 MG TABLET (CORTEF) PO SCH (20:47)
[2018-01-19] MEDS: PREDNISONE 5 MG TABLET PO SCH (20:47)
[2018-01-19] MEDS: LEVOFLOXACIN 250 MG/D5W 50 ML IV SCH (20:47)
[2018-01-19] MEDS: DECADRON 4 MG TABLET PO SCH (20:47)
[2018-01-19] MEDS: [UNRECOGNIZED DRUG - OTHER] PO SCH (20:47)
[2018-01-19] MEDS: PROCHLORPERAZINE MALEATE 10 MG TABLET PO SCH (20:48)
[2018-01-19] MEDS ORDERED: LACTOBACILLUS RHAMNOSUS GG 1 CAP CAPSULE PO SCH (21:00)
[2018-01-19] MEDS ORDERED: [UNRECOGNIZED DRUG - OTHER] PO SCH (21:00)
[2018-01-19] MEDS ORDERED: PROCHLORPERAZINE 10 MG PO SCH (21:00)
--- NOTE | 2018-01-19 22:08 | NUR ---
RN ROUNDS PATIENT ON BED AWAKE AND RESTING, CONFUSED, BREATHING EVEN AND UNLABORED, MAINTAINED POSITION OF COMFORT, MAINTAINED SAFETY PRECAUTION,BED ALARM MAINTAINED WILL CONTINUE TO MONITOR CALL LIGHT WITHIN REACH.
--- NOTE | 2018-01-19 23:52 | NUR ---
RN ROUNDS PATIENT ON BED SLEEPING AND RESTING BREATHING EVEN AND UNLABORED NO PAIN NOTED, WILL CONTINUE TO MONITOR CALL LIGHT WITHIN REACH SAFETY MAINTAINED
[2018-01-20 00:15] VITALS: BP_SYST 84
--- NOTE | 2018-01-20 01:58 | NUR ---
RN ROUNDS PATIENT ON BED SLEEPING AND RESTING, ON STABLE CONDITION, NO PAIN NOTED, MAINTAINED SAFETY PRECAUTIONS CALL LIGHT WITHIN REACH
[2018-01-20] MEDS: NACL 0.9% 1,000 ML IV SCH ×3 (03:00→13:05)
[2018-01-20] MEDS: metroNIDAZOLE 500 mg/NS 100 ML IV SCH ×3 (03:00→17:18)
--- NOTE | 2018-01-20 04:15 | NUR ---
RN ROUNDS PATIENT AWAKE AND RESTING, PATIENT WAS REMOVING THE POWDER COMPOUNDER REPEATEDLY, GIVEN EDUCATION ABOUT THE PURPOSE, PATIENT VERBALIZED UNDERSTANDING, PATIENT CONFUSED, MAINTAINED PATIENT ON SAFETY, BED ALARM MAINTAINED. WILL CONTINUE TO MONITOR CALL LIGHT WITHIN REACH
[2018-01-20 06:15] LABS: BASOPHILS % (AUTO) 0.3 % (0.0-2.0); EOSINOPHILS % (AUTO) 0.6 % (0.0-4.0); HEMATOCRIT 27.9 % (36-54); HEMOGLOBIN 9.6 g/dL (14.0-18.0); LYMPHOCYTES # (AUTO) 0.3 K/uL (1.0-5.5); LYMPHOCYTES % (AUTO) 5.9 % (20.5-51.5); MEAN CORPUSCULAR HEMOGLOBIN 31 pg (27-31); MEAN CORPUSCULAR HGB CONC 35 % (32-36); MEAN CORPUSCULAR VOLUME 90 fL (79.0-98.0); MONOCYTES # (AUTO) 0.5 K/uL (0.0-1.0); NEUTROPHILS # (AUTO) 4.2 K/uL (1.8-7.7); NEUTROPHILS % (AUTO) 83.2 % (40.0-70.0); PLATELET COUNT (AUTO) 149 K/uL (130-430); RED CELL DISTRIBUTION WIDTH 14.2 % (9.0-15.0)
[2018-01-20 06:33] LABS: ALBUMIN 1.8 g/dL (3.4-4.8); CALCIUM 8.5 mg/dL (8.4-11.0); CREATININE 1.71 mg/dL (0.55-1.30); POTASSIUM 3.7 mmol/L (3.5-5.1); TOTAL BILIRUBIN 0.8 mg/dL (0.0-1.0)
--- NOTE | 2018-01-20 06:38 | NUR ---
CLOSING NOTES PATIENT ON BED AWAKE AND RESTING BREATHING EVEN AND UNLABORED, NO SOB NOTED, PATIENT STILL REMOVING THE VICE INVESTIGATOR AND IS CONFUSED EDUCATION GIVEN, VERBALIZED UNDERSTANDING. NO PAIN NOTED IVF INFUSING WELL, WITH YEBOAH CATH DRAINING TO GRAVITY WELL. NO PAIN NOTED, KEPT PATIENT COMFORTABLE, WILL GIVE REPORT TO AM NURSE WILL CONTINUE TO MONITOR MAINTAINED SAFETY PRECAUTION BED ALARM MAINTAINED CALL LIGHT WITHIN REACH.
--- NOTE | 2018-01-20 07:20 | NUR ---
Opening Note: Patient laying in bed, pulled out IV and taking off leads. Patient is confused. No signs of pain or discomfort. Breathing is even and unlabored with no signs of distress. FC patent and intact with visible urine output. Patient taking off SCDS. BSC at bedside. Will start IV throughout shift. Bed in lowest position, wheels locked, side rails x3, bed alarm activated and call light within reach. Will continue to monitor.
[2018-01-20 08:19] VITALS: BP_SYST 104
[2018-01-20] MEDS: CARVEDILOL 12.5 MG TABLET (COREG) PO SCH ×2 (08:36→17:18)
[2018-01-20] MEDS: CITALOPRAM HYDROBROMIDE 20 MG TABLET PO SCH (08:36)
[2018-01-20] MEDS: PREDNISONE 5 MG TABLET PO SCH ×2 (08:37→21:54)
[2018-01-20] MEDS: HYDROCORTISONE 10 MG TABLET (CORTEF) PO SCH ×3 (08:37→21:53)
[2018-01-20] MEDS: ASPIRIN 325 MG TABLET (ECOTRIN) PO SCH (08:37)
[2018-01-20] MEDS: DECADRON 4 MG TABLET PO SCH ×2 (08:37→21:54)
[2018-01-20] MEDS: PROCHLORPERAZINE MALEATE 10 MG TABLET PO SCH ×3 (08:41→21:53)
[2018-01-20] MEDS: [UNRECOGNIZED DRUG - OTHER] PO SCH ×4 (08:43→21:56)
[2018-01-20] MEDS ORDERED: NON-FORMULARY MEDICATION (Lactobacillus Rhamnosus Gg (Probiotic) 1 EACH) PO SCH (09:00)
--- NOTE | 2018-01-20 09:15 | NUR ---
IV RE-INSERTION: Patient pulled out IV. Restarted on left hand. Successful after 1 attempts. Resumed current IVF of NS and regulated @ 150 per hour. Will observe for any signs of infiltration.
--- NOTE | 2018-01-20 10:05 | NUR ---
Rounding: Patient laying in bed resting. IV antibiotics started per MD orders.
--- NOTE | 2018-01-20 12:00 | NUR ---
Rounding: Patient laying in bed resting. Patient more calm and oriented. Patient not trying to remove lines. Morning medications tolerated well. No current needs. Will continue to monitor.
[2018-01-20 12:49] VITALS: BP_SYST 100
--- NOTE | 2018-01-20 14:05 | NUR ---
Rounding: Patient sitting in bed resting. Friend/neighbor at bedside.
--- NOTE | 2018-01-20 14:34 | NUR ---
Wound Evaluation: Late note for 1434 secondary to patient care. Wound Consult ordered for Low Chris Score. Patient evaluated for a low Chris score of 16. Patient was awake, alert, oriented and received in a Rufina Bed with an IsoFlex MARK mattress with low air-loss therapy. Patient needs some assist to turn in bed. Skin is intact. Recommend encourage and assist patient as needed with repositioning side to side only every 2 hours with pillow support. Elevate, off-load and float bilateral heels with pillows. Offload pressure areas with pillows for pressure re-distribution. Perform skin care and monitor skin integrity Q shift. Use moisture barrier cream on moisture susceptible areas QID and PRN for soiling. Maintain patient on a low air-loss mattress. Skin assessment: 1. Scrotal area: Erythema from IAD, present on admission. 2. Bilateral Inguinal areas: Erythema from IAD, present on admission. Recommend: Cleanse involved areas with mild soap and water. Pat dry. Apply antifungal powder to involved areas. Perform site care twice a day, and as needed for soiling.
--- NOTE | 2018-01-20 16:02 | NUR ---
Rounding: Patient laying in bed resting. Family at bedside. Patient denies pain and discomfort. Breathing is even and unlabored with no distress noted. No current needs. Will continue to monitor.
--- NOTE | 2018-01-20 16:28 | NUR ---
Onco consult called: for Dr. Baker, regarding adrenal ca, ordered by Dr. Robles, spoke with Ursula.
[2018-01-20 16:38] VITALS: BP_SYST 101
[2018-01-20] MEDS: LEVOFLOXACIN 250 MG/D5W 50 ML IV SCH (18:28)
--- NOTE | 2018-01-20 18:56 | NUR ---
Closing Note: Patient laying in bed asleep. No signs of pain or discomfort. Breathing is even and unlabored with no signs of distress. FC patent and intact with visible urine output. SCDS in place. BSC at bedside. IV patent and intact. Bed in lowest position, wheels locked, side rails x3, bed alarm activated and call light within reach. All needs met. Will endorse plan of care to NOC, nurse.
[2018-01-20 19:00] VITALS: BP_SYST 112
[2018-01-21 00:57] VITALS: BP_SYST 118
[2018-01-21] MEDS: metroNIDAZOLE 500 mg/NS 100 ML IV SCH ×3 (01:36→17:04)
[2018-01-21] MEDS: NACL 0.9% 1,000 ML IV SCH ×2 (01:37→14:13)
--- NOTE | 2018-01-21 01:50 | NUR ---
paged paged for Dr Robles, dialed . s/w Marissa.
[2018-01-21] MEDS: LORazepam 2 MG/ML VIAL IVP PRN ×2 (02:10→17:05)
--- NOTE | 2018-01-21 07:25 | NUR ---
INITIAL NOTE RECEIVED PATIENT FROM SECOND RIGGER NURSE, PATIENT TRYING TO GET OUT OF BED, REORIENTED PATIENT TO SURROUNDINGS, REPOSITIONED PATIENT, PATIENT IS ALERT AND ORIENTED X1, ALERT AND DISORIENTED, PATIENT HAS IV IN LEFT FOREARM WITH IV FLUIDS INFUSING, NO SIGNS OF INFILTRATION NOTED, IV HEP LOCK ALSO IN RIGHT FOREARM, PATIENT HAS YEBOAH CATHETER DRAINING YELLOW COLORED URINE, CALL BOND WITHIN REACH, BED IN LOWEST POSITION, BED ALARM ON, SIDE RAILS UP, FALL PRECAUTIONS IN PLACE, WILL CONTINUE TO MONITOR.
[2018-01-21 07:26] LABS: BASOPHILS % (AUTO) 0.2 % (0.0-2.0); EOSINOPHILS % (AUTO) 0.5 % (0.0-4.0); HEMATOCRIT 25.4 % (36-54); HEMOGLOBIN 8.7 g/dL (14.0-18.0); LYMPHOCYTES # (AUTO) 0.4 K/uL (1.0-5.5); LYMPHOCYTES % (AUTO) 6.4 % (20.5-51.5); MEAN CORPUSCULAR HEMOGLOBIN 31 pg (27-31); MEAN CORPUSCULAR HGB CONC 34 % (32-36); MEAN CORPUSCULAR VOLUME 90 fL (79.0-98.0); MONOCYTES # (AUTO) 0.6 K/uL (0.0-1.0); MONOCYTES % (AUTO) 9.1 % (1.7-9.3); NEUTROPHILS # (AUTO) 5.3 K/uL (1.8-7.7); NEUTROPHILS % (AUTO) 83.8 % (40.0-70.0); PLATELET COUNT (AUTO) 174 K/uL (130-430); RED BLOOD CELL COUNT(AUTO) 2.83 MIL/uL (4.2-6.2); RED CELL DISTRIBUTION WIDTH 14.6 % (9.0-15.0); WHITE BLOOD COUNT (AUTO) 6.3 K/uL (4.8-10.8)
[2018-01-21 07:30] LABS: CALCIUM 8.1 mg/dL (8.4-11.0); CREATININE 1.46 mg/dL (0.55-1.30); POTASSIUM 3.5 mmol/L (3.5-5.1)
[2018-01-21 07:39] LABS: PHOSPHORUS 1.9 mg/dL (2.7-4.5)
--- NOTE | 2018-01-21 07:47 | NUR ---
Nutrition Update Chris Scale 18 noted. Pt admitted for sepsis Diet: Mechanical soft BMI: 25.8 kg/m2 RD to follow per nutrition care standards.
[2018-01-21] MEDS: ASPIRIN 325 MG TABLET (ECOTRIN) PO SCH (08:19)
[2018-01-21] MEDS: DECADRON 4 MG TABLET PO SCH ×2 (08:20→21:00)
[2018-01-21] MEDS: CARVEDILOL 12.5 MG TABLET (COREG) PO SCH ×2 (08:20→17:05)
[2018-01-21] MEDS: HYDROCORTISONE 10 MG TABLET (CORTEF) PO SCH ×3 (08:20→21:00)
[2018-01-21] MEDS: CITALOPRAM HYDROBROMIDE 20 MG TABLET PO SCH (08:20)
[2018-01-21] MEDS: PROCHLORPERAZINE MALEATE 10 MG TABLET PO SCH ×3 (08:20→21:00)
[2018-01-21] MEDS: PREDNISONE 5 MG TABLET PO SCH ×2 (08:20→21:00)
[2018-01-21] MEDS: [UNRECOGNIZED DRUG - OTHER] PO SCH ×4 (08:21→21:00)
[2018-01-21 08:26] VITALS: BP_SYST 115
--- NOTE | 2018-01-21 09:30 | NUR ---
RN ROUNDS PATIENT RESTING IN BED, PATIENT WAS SEEN BY PT, UNABLE TO AMBULATE PATIENT DUE TO WEAKNESS AND UNSTEADINESS, NO OTHER NEEDS AT THIS TIME, WILL CONTINUE TO MONITOR.
--- NOTE | 2018-01-21 10:44 | NUR ---
RN ROUNDS PATIENT TRYING TO GET OUT OF BED, REORIENTED PATIENT TO SURROUNDS, PATIENT IN STABLE CONDITION, NO OTHER NEEDS AT THIS TIME, WILL CONTINUE TO MONITOR.
[2018-01-21 12:00] VITALS: BP_SYST 114
--- NOTE | 2018-01-21 12:16 | NUR ---
RN ROUNDS PATIENT SITTING UP EATING LUNCH, PATIENT IN STABLE CONDITION, WILL CONTINUE TO MONITOR.
--- NOTE | 2018-01-21 14:15 | NUR ---
RN ROUNDS PATIENT CHANGED AND REPOSITION, AFTERNOON MEDICATIONS GIVEN, NO OTHER NEEDS AT THIS TIME, WILL CONTINUE TO MONITOR.
--- NOTE | 2018-01-21 14:51 | NUR ---
Dietitian Recommendations -Recommend mecahnical soft diet w/ Boost Glucose Control once daily. -Oral supplement provides an additional 251 kcal and 14.4 gm protein daily. Please see the nutritional assessment for details SONAL CHANDLER,RD
--- NOTE | 2018-01-21 16:30 | NUR ---
RN ROUNDS PATIENT REORIENTED TO SURROUNDINGS, REPOSITIONED AND CHANGED BY NITROCELLULOSE MAKER, PATIENT IN STABLE CONDITION, WILL CONTINUE TO MONITOR.
[2018-01-21 16:47] VITALS: BP_SYST 115
[2018-01-21] MEDS ORDERED: QUEtiapine FUMARATE 25 MG TABLET PO SCH (18:00)
[2018-01-21] MEDS: LEVOFLOXACIN 250 MG/D5W 50 ML IV SCH (18:06)
--- NOTE | 2018-01-21 18:25 | NUR ---
CLOSING NOTE PATIENT RESTING IN BED WITH EYES CLOSED, NO SIGNS OF DISTRESS NOTED, BREATHING IS EVEN AND UNLABORED, ALL NEEDS MET, WILL ENDORSE PATIENT TO PEER EDUCATOR NURSE, BED IN LOWEST POSITION, SIDE RAILS UP, FALL PRECAUTIONS IN PLACE.
[2018-01-21 20:00] VITALS: BP_SYST 99
--- NOTE | 2018-01-21 20:00 | NUR ---
Initial PM Note Pt was received in bed lethargic and not in any distress. IVF of NS is infusing well in left hand at 80ml/hr. No signs of infiltration noted at the IV site. Fall and safety precautions are in place. VSS. Pt is afebrile. Dimas Cath to gravity drainage is draining cloudy yellowish urine. Will continue to monitor pt.
--- NOTE | 2018-01-21 21:00 | NUR ---
HS Medications Held Pt remains lethargic and all HS oral medications held. No respiratory distress noted at this time. IVF is infusing well in left hand.
--- NOTE | 2018-01-21 23:00 | NUR ---
Rounds Pt is sleeping without any distress noted. Fall and safety precautions are in place. IVF is infusing well.
[2018-01-22 00:19] VITALS: BP_SYST 106
--- NOTE | 2018-01-22 01:00 | NUR ---
Rounds Pt continues to sleep without any distress noted. IVF is infusing well in left hand.
[2018-01-22] MEDS: metroNIDAZOLE 500 mg/NS 100 ML IV SCH ×3 (01:52→18:21)
--- NOTE | 2018-01-22 03:00 | NUR ---
Rounds Pt is sleeping comfortably in bed. Fall and safety precautions are in place. hospital monitor is showing SR.
[2018-01-22] MEDS: NACL 0.9% 1,000 ML IV SCH ×2 (03:30→10:33)
--- NOTE | 2018-01-22 05:00 | NUR ---
Rounds Pt is sleeping without any respiratory distress noted. IVF is infusing well in left hand. Fall and safety precautions are in place.
--- NOTE | 2018-01-22 07:00 | NUR ---
Closing Note Pt remains drowsy and not in any distress at this time. All pt's needs were attended to. No fall or injury noted this shift. IVF is infusing well at 80ml/hr. Will endorse to day shift nurse.
[2018-01-22 07:52] VITALS: BP_SYST 129
[2018-01-22] MEDS: CARVEDILOL 12.5 MG TABLET (COREG) PO SCH ×2 (08:00→18:00)
--- NOTE | 2018-01-22 08:34 | NUR ---
Social Service Note: [facility] has faxed orders and pt's information to [facility] ([phone] [phone]); pt was previously on services with [facility]. Pt will need SNF placement for hospice services. Addendum: 01/22/18 at 1338 by Kandice CASTANEDAW [facility] will be sending their nurse out to get pt home; pt's sister has signed consents and pt will returning home today.
[2018-01-22] MEDS: PREDNISONE 5 MG TABLET PO SCH ×2 (09:00→21:28)
[2018-01-22] MEDS: ASPIRIN 325 MG TABLET (ECOTRIN) PO SCH (09:00)
[2018-01-22] MEDS: DECADRON 4 MG TABLET PO SCH (09:00)
[2018-01-22] MEDS: CITALOPRAM HYDROBROMIDE 20 MG TABLET PO SCH (09:00)
[2018-01-22] MEDS: [UNRECOGNIZED DRUG - OTHER] PO SCH ×4 (09:00→21:28)
[2018-01-22] MEDS: HYDROCORTISONE 10 MG TABLET (CORTEF) PO SCH ×3 (09:00→21:28)
[2018-01-22] MEDS: PROCHLORPERAZINE MALEATE 10 MG TABLET PO SCH ×3 (09:00→21:27)
--- NOTE | 2018-01-22 09:04 | NUR ---
Physician Contact/Medication change to be ordered Talked to Dr Baker on the unit and asked about pt medications and the inability to administer them, particularly the decadron. He aske me to change the order for decadron to 4 mg IV
--- NOTE | 2018-01-22 10:00 | NUR ---
Rounding Pt lethargic, aroused to light painful stimulus, no s/s of SOB or distress, breathing is even and unlabored. No grimacing or indications of pain. Bed in low locked position with call light within reach.
[2018-01-22] MEDS ORDERED: DEXAMETHASONE SOD PHOSPHATE 4 MG/ML VIAL IVP ONE (10:30)
--- NOTE | 2018-01-22 12:00 | NUR ---
Rounding note Pt lethargic, aroused to light painful stimulus, no s/s of SOB or distress, breathing is even and unlabored. No grimacing or indications of pain. Bed in low locked position with call light within reach.
[2018-01-22 12:54] VITALS: BP_SYST 123
--- NOTE | 2018-01-22 14:00 | NUR ---
Rounding Pt remains lethargic, breathing even and unlabored. No indication of pain.
--- NOTE | 2018-01-22 15:06 | NUR ---
Physician contact Dr Robles indicates that pt is probably not best placed at home but at SNF. JOSTIN Diaz notified, she's talking to Dr Robles on unit
--- NOTE | 2018-01-22 15:41 | NUR ---
DISCHARGE PLANNING - DISCHARGE PATIENT TO HOSPICE SNF Per Dr. Robles, he wants pt discharged to a SNF for his Hospice care because pt needs residential care that family can notify provide at home. C/S with pt's sister, Yenny Martínez ph: [phone] and agrees as long as SNF is close to her. C/S with Roberta [facility] ph: [phone] about above change. Addendum: 01/22/18 at 1604 by Emily Florez RN CM staff stated pt's sister has spoken with Negar Wray and was clear that she wants pt home - they discusses with Dr. Robles and agree to d/c pt to home. C/S with Roberta [facility]. Updated her that pt is d/c home for hospice. She will notify her RN of the change. C/s with pt's sister, Yenny Martínez ph: [phone] and agrees for pt to go home with hospice care.
--- NOTE | 2018-01-22 16:00 | NUR ---
Rounding pt responsive to voice, but confused. No s/s of SOB or distress. Pt repositioned, but repositioned himself in bed.
--- NOTE | 2018-01-22 16:10 | NUR ---
Wound Re-Evaluation: Wound Consult ordered for Low Chris Score. Patient evaluated for a low Chris score of 12. Patient was awake, alert, oriented and received in a Severy Bed with an IsoFlex MARK mattress with low air-loss therapy. Patient needs some assist to turn in bed. Skin is intact. Recommend encourage and assist patient as needed with repositioning side to side only every 2 hours with pillow support. Elevate, off-load and float bilateral heels with pillows. Offload pressure areas with pillows for pressure re-distribution. Perform skin care and monitor skin integrity Q shift. Use moisture barrier cream on moisture susceptible areas QID and PRN for soiling. Maintain patient on a low air-loss mattress. Skin assessment: 1. Scrotal area: Erythema from IAD, present on admission. Much improved, very little erythema, and information technology intern in color. 2. Bilateral Inguinal areas: Erythema from IAD, present on admission. Much improved, very little erythema, and information technology intern in color. Recommend continue: Cleanse involved areas with mild soap and water. Pat dry. Apply antifungal powder to involved areas. Perform site care twice a day, and as needed for soiling.
[2018-01-22 16:15] VITALS: BP_SYST 121
[2018-01-22 16:37] VITALS: BP_SYST 123
--- NOTE | 2018-01-22 18:00 | NUR ---
Rounding Pt drank some water with assistance. no pain or discomfort reported, no s/s of SOB or distress.
--- NOTE | 2018-01-22 19:11 | NUR ---
Physician contact Dr Robles called and notified me that the pt family request that the pt go to a SNF and not home. He will cancel the current discharge orders and enter new orders reflecting this. [facility] called for an early pickup prior to this but they will be sent away when they arrive.
--- NOTE | 2018-01-22 19:33 | NUR ---
Closing note Pt care endorsed to NOC shift including new change of discharge plans for family. Also informed NOC shift nurse that Pt has his own medication in the med room drawer that need to go with patient upon discharge. Bed in low locked position and call light within reach.
[2018-01-22] MEDS: LEVOFLOXACIN 250 MG/D5W 50 ML IV SCH (19:38)
--- NOTE | 2018-01-22 19:42 | NUR ---
Pt Home Meds Pt own medication located in med room, send with pt upon discharge.
[2018-01-22 20:00] VITALS: BP_SYST 156
--- NOTE | 2018-01-22 20:30 | NUR ---
Opening Notes Received patient in bed awake. Responds to name but speech is garbled. AOx1. Unable to verbalize needs. Patient has a FC within yellow urine draining by gravity. IV on the left hand 20g infusing NS at 80ml. Site clean dry and intact without any sign of infection or infiltration. Minimum redness on the sacrum and scrotum, skin intact. Cleaned and kept dry. Lungs and heart sounds wnl. No complaints of pain or respiratory distress. Oriented the patient to the room and use of the call light. Patient nods understanding. Bed alarm is active and safety precautions in place. WIll monitor on rounds.
[2018-01-22] MEDS ORDERED: DECADRON 4 MG TABLET PO SCH (21:00)
[2018-01-22] MEDS: DEXAMETHASONE SOD PHOSPHATE 4 MG/ML VIAL IVP SCH (21:27)
--- NOTE | 2018-01-22 22:20 | NUR ---
Patient is awake. Able to take PO medications 1 at a time. Will need to monitor PO meds, as patient does not swallow immediately. He will keep in his mouth. Bed in low position and repositioned. Bed alarm is on and will continue to monitor.
--- NOTE | 2018-01-23 00:03 | NUR ---
Assisted patient drinking water. Approx 100ml orally. Repositioned patient. No pain or sob noted. Will cont to monitor on rounds.
[2018-01-23 00:10] VITALS: BP_SYST 138
[2018-01-23] MEDS: NACL 0.9% 1,000 ML IV SCH ×2 (00:32→15:47)
[2018-01-23] MEDS: metroNIDAZOLE 500 mg/NS 100 ML IV SCH ×3 (01:08→17:51)
--- NOTE | 2018-01-23 02:15 | NUR ---
Patient repositioned and no complaints of pain or sob. Bed alarm is active and bed on low position.
--- NOTE | 2018-01-23 04:10 | NUR ---
No change of condition. Patient is asleep in bed with visualized rise and fall of chest. Safety precautions in place.
--- NOTE | 2018-01-23 07:09 | NUR ---
Closing Notes Patient in bed awake. Has been asking for water every hour on rounds. No complaints of pain or respiratory distress. FC draining by gravity. IV site intact infusing NS@80 with no s/s of infection or infiltration. All needs have been met and will endorse to the day shift nurse. Safety precautions are being observed.
--- NOTE | 2018-01-23 07:20 | NUR ---
Opening note Pt ALOCx 1, but difficult to assess levele of understanding, in bed, no s/s of SOB or distress, no c/o pain or discomfort. Pt lethargic but aroused to voice. Reviewed safety and fall precautions, bed in low locked position with bed alarm on and call light within reach.
[2018-01-23] MEDS: CARVEDILOL 12.5 MG TABLET (COREG) PO SCH ×2 (08:00→17:51)
[2018-01-23 08:30] VITALS: BP_SYST 127
[2018-01-23] MEDS: PROCHLORPERAZINE MALEATE 10 MG TABLET PO SCH ×3 (09:00→21:25)
[2018-01-23] MEDS: [UNRECOGNIZED DRUG - OTHER] PO SCH ×4 (09:00→21:25)
[2018-01-23] MEDS: CITALOPRAM HYDROBROMIDE 20 MG TABLET PO SCH (09:00)
[2018-01-23] MEDS: ASPIRIN 325 MG TABLET (ECOTRIN) PO SCH (09:00)
[2018-01-23] MEDS: HYDROCORTISONE 10 MG TABLET (CORTEF) PO SCH ×3 (09:00→21:25)
[2018-01-23] MEDS: PREDNISONE 5 MG TABLET PO SCH ×2 (09:00→21:25)
[2018-01-23] MEDS: DEXAMETHASONE SOD PHOSPHATE 4 MG/ML VIAL IVP SCH ×2 (09:19→21:25)
--- NOTE | 2018-01-23 09:26 | NUR ---
Med non administration/rounding Pt resting in bed, somulent and while aroused by voice, he is unable to stay awake to safely swallow. IV decadron and flagyl administered.
--- NOTE | 2018-01-23 11:34 | NUR ---
Discharge Planning APPLE CHECKER received information from Emily MCCORMACK CM that patient was to discharge to [facility] with SNF placement. APPLE CHECKER phoned [facility], , and spoke with Oh in admissions. He is working on SNF placement. APPLE CHECKER informed him that [facility] was informed about the patient and possibly would take patient. Oh stated he would work on discharge. Informed patient's nurse, Patricia. Addendum: 01/23/18 at 1303 by Traci Garcia LCSW APPLE CHECKER faxed the order "Transfer to SNF with hospice when bed is available" to [facility]. APPLE CHECKER phoned [facility] and spoke with Willie and requested an update on SNF arrangements. It did not seem that anything had been done as of yet. APPLE CHECKER asked if Willie needed assistance and again mentioned that patient may be accepted at [facility]. Willie stated he would follow up. Addendum: 01/23/18 at 1311 by Traci Garcia LCSW Correction [facility] fax [phone].
--- NOTE | 2018-01-23 11:39 | NUR ---
Rounding pt resting in bed, breathing is even and unlabored. No grimacing or indications of pain or discomfort. Bed check completed.
[2018-01-23 13:01] VITALS: BP_SYST 127
--- NOTE | 2018-01-23 14:05 | NUR ---
Rounding pt resting, breathing is even and unlabored. no indication of pain or discomfort
--- NOTE | 2018-01-23 15:38 | NUR ---
DISCHARGE PLANNING - TRANSFER TO SNF UNDER HOSPICE CARE FOLLOW UP C/S with Parker, Baker Pastry @ [facility] ph: [phone] on any update of pt's transfer today. He states that his record shows that the nurse is currently in the process of working on the transfer. He will contact AGNES Aviles, and JOSTIN on update. Addendum: 01/23/18 at 1645 by Emily Florez RN Received call from [facility] with update that [facility] is not taking pt because they are currently not taking in new patient due to scabies outbreak in their facility. He will coordinate with family members for change of venue.
--- NOTE | 2018-01-23 16:00 | NUR ---
Rounding Pt remains lethargic, breathing even and unlabored w/ no s/s of pain or discomfort.
[2018-01-23 16:46] VITALS: BP_SYST 137
[2018-01-23] MEDS: LEVOFLOXACIN 250 MG/D5W 50 ML IV SCH (18:52)
--- NOTE | 2018-01-23 19:00 | NUR ---
Closing note Pt ALOCx3, ate dinner and took PO medications this evening for the first time on this shift. Pt has no s/s of SOB or distress. Pending discharge when [facility] finds placement for patient. Family had been at bedside but just left. Bed and safety check completed, will endorse care and give report to NOC shift nurse.
[2018-01-23 20:00] VITALS: BP_SYST 112
--- NOTE | 2018-01-23 20:31 | NUR ---
Opening Notes Received the patient in bed resting comfortably. Patient states "I want to go home". Redirected patient to the room. AOx2. Able to verbalize needs. No complaints of pain or respiratory distress. SCD's on patient and Dimas catheter draining by gravity yellow urine. IV infusing NS at 80ml, with no s/s of infection or infiltration. Oriented the patient to the room and use of the call light. Placed bed in low position and bed alarm is active. Will monitor the patient on rounds for any change of condition.
--- NOTE | 2018-01-23 22:25 | NUR ---
Patient tolerated medication well. More alert than when arrived on shift. No pain or sob noted. Safety precautions in place and will cont to monitor hourly on rounds.
[2018-01-24 00:28] VITALS: BP_SYST 132
--- NOTE | 2018-01-24 00:50 | NUR ---
Patient awake using the bedpan. No pain or respiratory distress. oriented the patient on how to use the call light. Patients states he is thirsty. Bed alarm is on and IV fluids infusing. Dimas draining by gravity , zahra urine color. Will continue to monitor on rounds.
[2018-01-24] MEDS: metroNIDAZOLE 500 mg/NS 100 ML IV SCH ×3 (01:31→18:47)
--- NOTE | 2018-01-24 02:43 | NUR ---
Patient in bed awake. Asks for water on hourly rounds. Had a loose bowel movement. Cooperative. no pain stated by the patient or respiratory distress. Call on within reach and bed alarm is active.
--- NOTE | 2018-01-24 04:44 | NUR ---
Patient in bed. No change of condition.
[2018-01-24] MEDS: NACL 0.9% 1,000 ML IV SCH ×2 (05:58→18:00)
--- NOTE | 2018-01-24 06:35 | NUR ---
CLosing Notes Patient in bed more responsive this morning AOx3. IV infusing with no s/s of infection or infiltration. Dimas draining by gravity yellow/zahra urine. All needs have been met and safety precautions in place. Will endorse to the day shift nurse.
[2018-01-24 07:55] VITALS: BP_SYST 130
--- NOTE | 2018-01-24 07:55 | NUR ---
RN OPENING NOTE PT AWAKE AND VERBAL, SPEAKS IVORIAN CLEARLY,, A/O X 3, NO SIGN OF CONFUSION BUT WAS UNABLE TO TELL ME THE NAME OF THE HOSPITAL. VS STABLE ON ROOM AIR, NO COMPLAINT OF DISCOMFORT. PT EDUCATED ON UNIT SAFETY AND DEMONSTRATED USE OF CALL LIGHT. PT ASKED IF HE COULD D/C HOME RATHER THAN SNF ORDERED, I INFORMED PT WE CAN DISCUSS WITH MD TODAY DURING ROUNDS.
[2018-01-24] MEDS: ASPIRIN 325 MG TABLET (ECOTRIN) PO SCH (09:27)
[2018-01-24] MEDS: CITALOPRAM HYDROBROMIDE 20 MG TABLET PO SCH (09:27)
[2018-01-24] MEDS: CARVEDILOL 12.5 MG TABLET (COREG) PO SCH ×2 (09:28→18:49)
[2018-01-24] MEDS: DEXAMETHASONE SOD PHOSPHATE 4 MG/ML VIAL IVP SCH ×2 (09:28→21:37)
[2018-01-24] MEDS: PREDNISONE 5 MG TABLET PO SCH ×2 (09:28→21:37)
[2018-01-24] MEDS: [UNRECOGNIZED DRUG - OTHER] PO SCH ×4 (09:29→21:39)
[2018-01-24] MEDS: PROCHLORPERAZINE MALEATE 10 MG TABLET PO SCH ×3 (09:29→21:38)
[2018-01-24] MEDS: HYDROCORTISONE 10 MG TABLET (CORTEF) PO SCH ×3 (09:29→21:37)
--- NOTE | 2018-01-24 12:00 | NUR ---
RN ROUNDS PT RESTING IN BED, A/O X 4, COMPLAINS OF MODERATE ABDOMINAL PAIN BUT STATED IT IS CHRONIC DUE TO HIS CANCER AND HE DOES NOT WANT PAIN MEDICATION AT THIS TIME.
[2018-01-24 12:26] VITALS: BP_SYST 104
--- NOTE | 2018-01-24 13:40 | NUR ---
YASMIN PLANNING Received msg from Concepcion @ [facility], ph [phone], she has spoken w pt's sister Yenny & she is ok for SNF other than [facility]. [facility] looking for SNF for pt. Updated pt's nurse Jefry.
--- NOTE | 2018-01-24 15:17 | NUR ---
DR. NORIEGA AT BEDSIDE NEW ORDERS RECEIVED
[2018-01-24 15:48] LABS: BASOPHILS % (AUTO) 0.2 % (0.0-2.0); EOSINOPHILS % (AUTO) 0.5 % (0.0-4.0); HEMATOCRIT 24.4 % (36-54); HEMOGLOBIN 8.1 g/dL (14.0-18.0); LYMPHOCYTES # (AUTO) 0.4 K/uL (1.0-5.5); LYMPHOCYTES % (AUTO) 7.2 % (20.5-51.5); MEAN CORPUSCULAR HEMOGLOBIN 30 pg (27-31); MEAN CORPUSCULAR HGB CONC 33 % (32-36); MEAN CORPUSCULAR VOLUME 90 fL (79.0-98.0); MONOCYTES # (AUTO) 0.6 K/uL (0.0-1.0); MONOCYTES % (AUTO) 9.2 % (1.7-9.3); NEUTROPHILS % (AUTO) 82.9 % (40.0-70.0); PLATELET COUNT (AUTO) 263 K/uL (130-430); RED BLOOD CELL COUNT(AUTO) 2.71 MIL/uL (4.2-6.2); RED CELL DISTRIBUTION WIDTH 14.4 % (9.0-15.0)
[2018-01-24 15:54] LABS: CALCIUM 7.7 mg/dL (8.4-11.0); CREATININE 1.29 mg/dL (0.55-1.30)
[2018-01-24 16:04] LABS: POTASSIUM 2.5 mmol/L (3.5-5.1)
[2018-01-24 16:06] LABS: ALBUMIN 1.5 g/dL (3.4-4.8); TOTAL BILIRUBIN 0.3 mg/dL (0.0-1.0)
[2018-01-24] MEDS ORDERED: POTASSIUM CHLORIDE 20 MEQ TAB.PRT.SR PO ONE (16:15)
[2018-01-24] MEDS ORDERED: MAGNESIUM SULFATE 50 ML IV ONE ×2 (16:15→18:15)
[2018-01-24] MEDS ORDERED: POTASSIUM CHLORIDE 40 MEQ, LIDOCAINE JECT 2% PF 100 MG 50 MG in NS 250 ML IV ONE (16:15)
[2018-01-24] MEDS ORDERED: LOPERAMIDE HCL 2 MG CAPSULE PO ONE (16:15)
[2018-01-24] MEDS ORDERED: NAPH,MB-DB/K PH,MBDB 250 MG TAB PO ONE (16:15)
[2018-01-24] MEDS ORDERED: LOPERAMIDE HCL 2 MG CAPSULE PO PRN (16:15)
[2018-01-24 16:29] VITALS: BP_SYST 102
[2018-01-24] MEDS: NAPH,MB-DB/K PH,MBDB 250 MG TAB PO SCH ×2 (18:48→21:37)
--- NOTE | 2018-01-24 19:20 | NUR ---
ENDORSEMENT REPORT ENDORSED TO KSENIA RODRIGUEZ AT BEDSIDE
--- NOTE | 2018-01-24 19:50 | NUR ---
OPENING NOTE PT ENDORSEMENT REPORT RECEIVED FROM DAY SHIFT RNFRANCIA. PT RESTING COMFORTABLY IN BED. CHEST RISE EVEN AND UNLABORED. PAIN DENIED AT THIS TIME. NO SOB OR DISCOMFORT NOTED AT THIS TIME. RN ENDORSED PT IS DNR, FORMS SIGNED IN CHART. RN ENDORSED NEW ORDERS FROM DR. NORIEGA TO KEEP PT TELE AND NOT D/C YEBOAH CATHETER. KSENIA FELDMAN, WILL PUT ORDERS IN. SAFETY MEASURES IN PLACE BED ALARM ON, BED WHEELS LOCKED, BED IN LOWEST POSITION, BED RAILS UP X2, CALL LIGHT WITHIN REACH, BEDSIDE TABLE WITHIN REACH. ALL NEEDS ARE MET AT THIS TIME. PT ENCOURAGED TO CALL IF ASSISTANCE NEEDED. PT'S IVF RUNNING WELL PER MD ORDERS. WILL CONTINUE TO FOLLOW UP AND MONITOR PATIENT FOR CHANGES IN STATUS.
[2018-01-24 21:29] VITALS: BP_SYST 112
--- NOTE | 2018-01-24 21:29 | NUR ---
RN ROUNDS PT RESTING COMFORTABLY IN BED. CHEST RISE EVEN AND UNLABORED. PAIN DENIED AT THIS TIME. NO SOB OR DISCOMFORT NOTED AT THIS TIME. VITAL SIGNS WNL. SCHEDULED MEDICATIONS GIVEN ORDERED, PT TOLERATED WELL. PT ABLE TO SWALLOW MEDICATIONS ONE AT A TIME WITH WATER WELL, PT PACES SELF. LEVAQUIN ADMINISTERED ORDERED, KSENIA FELDMAN DID NOT ENDORSE. SAFETY MEASURES IN PLACE BED ALARM ON, BED WHEELS LOCKED, BED IN LOWEST POSITION, BED RAILS UP X2, CALL LIGHT WITHIN REACH, BEDSIDE TABLE WITHIN REACH. ALL NEEDS ARE MET AT THIS TIME. ENCOURAGED TO CALL IF ASSISTANCE NEEDED. PT'S IVF RUNNING WELL PER MD ORDERS. WILL CONTINUE TO FOLLOW UP AND MONITOR PATIENT FOR CHANGES IN STATUS.
[2018-01-24] MEDS: LEVOFLOXACIN 250 MG/D5W 50 ML IV SCH (21:32)
--- NOTE | 2018-01-24 21:35 | NUR ---
RN ROUNDS KSENIA FELDMAN DID NOT PUT NEW ORDERS NOT TO D/C YEBOAH OR TELE MONITOR PER DR. NORIEGA. NOTIFIED CHARGE NURSE LEOBARDO.
[2018-01-24] MEDS: POTASSIUM CHLORIDE 20 MEQ TAB.PRT.SR PO SCH (21:37)
--- NOTE | 2018-01-24 22:50 | NUR ---
RN ROUNDS CHARGE NURSE LEOBARDO NOTIFIED RN, NO ORDER IN THE SYSTEM AND NO NOTE PRESENT. FOLLOW ORDER D/C OBINNA AND TELE MONITOR.
--- NOTE | 2018-01-25 00:20 | NUR ---
RN ROUNDS PT RESTING COMFORTABLY IN BED WITH EYES OPEN. CHEST RISE EVEN AND UNLABORED. NO SOB OR DISCOMFORT NOTED AT THIS TIME. PT ASSISTED ONTO BEDPAN. SAFETY MEASURES IN PLACE BED ALARM ON, BED WHEELS LOCKED, BED IN LOWEST POSITION, BED RAILS UP X2, CALL LIGHT WITHIN REACH, BEDSIDE TABLE WITHIN REACH. ALL NEEDS ARE MET AT THIS TIME. WILL CONTINUE TO FOLLOW UP AND MONITOR PT FOR CHANGES IN STATUS.
[2018-01-25 00:31] VITALS: BP_SYST 110
--- NOTE | 2018-01-25 00:35 | NUR ---
RN ROUNDS PT CONTINUES TO HAVE BOUTS OF DIARRHEA, PT REFUSES IMODIUM.
[2018-01-25] MEDS: metroNIDAZOLE 500 mg/NS 100 ML IV SCH ×3 (02:35→17:20)
--- NOTE | 2018-01-25 02:35 | NUR ---
RN ROUNDS PT RESTING COMFORTABLY IN BED WITH EYES OPEN. CHEST RISE EVEN AND UNLABORED. NO SOB OR DISCOMFORT NOTED AT THIS TIME. PT ASSISTED ONTO BEDPAN, PT CONTINUES TO HAVE BOUTS OF DIARRHEA, PT REFUSES IMMODIUM. SAFETY MEASURES IN PLACE, BED ALARM ON, BED WHEELS LOCKED, BED IN LOWEST POSITION, BED RAILS UP X2, CALL LIGHT WITHIN REACH, BEDSIDE TABLE WITHIN REACH. ALL NEEDS ARE MET AT THIS TIME. ENCOURAGED TO CALL IF ASSISTANCE NEEDED. PT'S IVF RUNNING WELL PER MD ORDERS. WILL CONTINUE TO FOLLOW UP AND MONITOR PT FOR CHANGES IN STATUS.
--- NOTE | 2018-01-25 04:53 | NUR ---
RN ROUNDS PT RESTING IN BED WITH EYES OPEN. CHEST RISE EVEN AND UNLABORED. NO SON NOTED. NO DISTRESS NOTED. MAMIE KEITH ASSISTED PT WITH THE BEDPAN AND CHANGED PT'S LINEN. IVF INFUSING WELL. SAFETY MEASURES IN PLACE. WILL CONTINUE TO MONITOR PT.
[2018-01-25] MEDS: NACL 0.9% 1,000 ML IV SCH ×2 (05:46→18:06)
--- NOTE | 2018-01-25 06:30 | NUR ---
CLOSING NOTE WILL ENDORSE PT REPORT TO DAY SHIFT NURSE. PT RESTING COMFORTABLY IN BED WITH EYES OPEN. PT IS AOX4. CHEST RISE EVEN AND UNLABORED. NO PAIN REPORTED AT THIS TIME. NO SOB OR DISCOMFORT NOTED AT THIS TIME. ALL SCHEDULED MEDICATIONS ADMINISTERED ORDERED PER POC. IVF INFUSING WELL. IMODIUM ADMINISTERED ORDERED FOR DIARRHEA. SAFETY MEASURES IN PLACE BED ALARM ON, BED WHEELS LOCKED, BED IN LOWEST POSITION, BED RAILS UP X2, CALL LIGHT WITHIN REACH, BEDSIDE TABLE WITHIN REACH. ALL NEEDS MET THROUGHOUT SHIFT. WILL CONTINUE TO FOLLOW UP AND MONITOR PATIENT FOR CHANGES IN STATUS WHILE ON THE FLOOR.
--- NOTE | 2018-01-25 07:25 | NUR ---
Initial Note Received report from the night nurse Andreia. Pt AOX4. No signs of distress noted at this time. Bed is at lowest position with bed alarm on. Call light within reach.
[2018-01-25 07:35] VITALS: BP_SYST 106
[2018-01-25] MEDS: CARVEDILOL 12.5 MG TABLET (COREG) PO SCH ×2 (08:00→17:10)
[2018-01-25] MEDS: DEXAMETHASONE SOD PHOSPHATE 4 MG/ML VIAL IVP SCH ×2 (08:21→22:03)
[2018-01-25] MEDS: NAPH,MB-DB/K PH,MBDB 250 MG TAB PO SCH ×4 (08:21→22:02)
[2018-01-25] MEDS: CITALOPRAM HYDROBROMIDE 20 MG TABLET PO SCH (08:22)
[2018-01-25] MEDS: ASPIRIN 325 MG TABLET (ECOTRIN) PO SCH (08:22)
[2018-01-25] MEDS: POTASSIUM CHLORIDE 20 MEQ TAB.PRT.SR PO SCH ×2 (08:22→22:02)
[2018-01-25] MEDS: PREDNISONE 5 MG TABLET PO SCH ×2 (08:22→22:02)
[2018-01-25] MEDS: HYDROCORTISONE 10 MG TABLET (CORTEF) PO SCH ×3 (08:22→22:02)
[2018-01-25] MEDS: [UNRECOGNIZED DRUG - OTHER] PO SCH ×4 (08:28→22:02)
[2018-01-25] MEDS: PROCHLORPERAZINE MALEATE 10 MG TABLET PO SCH ×3 (08:33→22:03)
--- NOTE | 2018-01-25 09:30 | NUR ---
Vomiting Episode Dr. Robles was paged to get an order for nausea medication. Addendum: 01/25/18 at 1241 by Espinoza Gee RN Dr. Robles called back and ordered Reglan 10 mg IVP x 1, and Zofran 4 mg IVP q4hr PRN
[2018-01-25] MEDS ORDERED: METOCLOPRAMIDE HCL 10 MG/2 ML VIAL IVP ONE (09:45)
--- NOTE | 2018-01-25 10:22 | NUR ---
Wound Re-Evaluation: Late note for 1021 secondary to patient care. Wound Consult ordered for Low Chris Score. Patient re-evaluated for a low Chris score of 14. Patient was awake, alert, oriented, and received in a [place] Bed with an IsoFlex MARK mattress with low air-loss therapy. Patient needs some assist to turn in bed. Skin is intact. Recommend encourage and assist patient as needed with repositioning side to side only every 2 hours with pillow support. Elevate, off-load and float bilateral heels with pillows. Offload pressure areas with pillows for pressure re-distribution. Perform skin care and monitor skin integrity Q shift. Use moisture barrier cream on moisture susceptible areas QID and PRN for soiling. Maintain patient on a low air-loss mattress. Skin assessment: Skin care performed by day shift nurse. Skin assessment provided by KSENIA Doran. 1. Scrotal area: Erythema from IAD, present on admission. No erythema reported. 2. Bilateral Inguinal areas: Erythema from IAD, present on admission. No erythema reported. Recommend continue: Cleanse involved areas with mild soap and water. Pat dry. Apply antifungal powder to involved areas. Perform site care twice a day, and as needed for soiling.
--- NOTE | 2018-01-25 11:25 | NUR ---
RN Rounds Pt resting and does not shows any sign of distress at this time. Bed is at lowest position with bed alarm on. Call light within reach.
[2018-01-25 12:40] VITALS: BP_SYST 118
--- NOTE | 2018-01-25 13:30 | NUR ---
PHYSICAL THERAPY CO-SIGN The Physical Therapy Progress Notes documented by Management Manager have been reviewed. I concur with the documentation of this HEALTH NAVIGATOR. He made good progress today with his gait activities and was less lethargic. Plan: continue PT as per plan of care if he remains in this hospital. Reviewed/Co-Signed by: Terri Smith,PT Documentation Done by: Donnell Waters, HEALTH NAVIGATOR Addendum: 01/25/18 at 1353 by Terri Smith PT Amended: Links added.
[2018-01-25] MEDS ORDERED: ONDANSETRON HCL 4 MG/2 ML VIAL IVP PRN (15:00)
--- NOTE | 2018-01-25 15:28 | NUR ---
D/C Planning: Called [facility] at [phone] spoke with Wyatt at [facility] advised no placement as of today with SNF. Requested call back urgently with dental hygienist mobile coordinator to see what CM can do to facilitate D/C to SNF.
--- NOTE | 2018-01-25 15:30 | NUR ---
RN Rounds Pt awake and does not complain of any pain or discomfort at this time. Bed is at lowest position with bed alarm on. Call light within reach.
[2018-01-25 16:34] VITALS: BP_SYST 105
[2018-01-25] MEDS: LEVOFLOXACIN 250 MG/D5W 50 ML IV SCH (18:06)
[2018-01-25 18:28] LABS: CALCIUM 7.9 mg/dL (8.4-11.0); CREATININE 1.39 mg/dL (0.55-1.30); POTASSIUM 4.1 mmol/L (3.5-5.1)
--- NOTE | 2018-01-25 18:55 | NUR ---
Closing Note Pt AOX4. No signs of distress noted at this time. Bed is at lowest position withe bed alarm on. Call light within reach. Pt pulled out his IV line. New IV line inserted on the left forearm #22. IV line is patent and no sign of infiltration noted. Pt tolerated well the procedure.
[2018-01-25 20:00] VITALS: BP_SYST 143
--- NOTE | 2018-01-25 20:00 | NUR ---
Initial PM Note Pt was received lying in bed fully awake, alert and oriented x3. Speech is clear and pt is able to make his needs known. No c/o pain or discomfort. Pt is not in any distress at this time. IVF of NS is infusing well in left wrist at 80ml/hr. No signs of infiltration noted at the IV site. Fall and safety precautions are in place. Call light is with pt and bed alarm is on. Pt was instructed to call for assistance as needed and pt verbalized understanding. Bed is in the lowest and locked positions. Dimas Cath to gravity drainage is draining clear yellowish urine. Will continue to monitor pt.
--- NOTE | 2018-01-25 22:00 | NUR ---
Rounds Pt is resting comfortably in bed. IVF is infusing well in left wrist. Call light is with pt and bed alarm is on.
--- NOTE | 2018-01-25 23:58 | NUR ---
Nausea/Vomiting Pt c/o nausea and vomiting partially digested HS medications. Zofran 4mg was given IV per pt's request with relief. IVF is infusing well in left wrist. Fall and safety precautions are in place.
[2018-01-26 00:41] VITALS: BP_SYST 120
[2018-01-26] MEDS: metroNIDAZOLE 500 mg/NS 100 ML IV SCH (01:53)
--- NOTE | 2018-01-26 02:00 | NUR ---
Rounds Pt is resting comfortably in bed. Fall and safety precautions are in place. IVF is infusing well at 80ml/hr. Will continue to monitor pt.
--- NOTE | 2018-01-26 04:00 | NUR ---
Rounds Pt is resting comfortably in bed. IVF is infusing well in left wrist. Call light is with pt and bed alarm is on.
--- NOTE | 2018-01-26 06:30 | NUR ---
Closing Note Pt is awake and resting comfortably in bed. All pt's needs were attended to. No fall or injury noted this shift. Will endorse to day shift nurse.
[2018-01-26 07:53] VITALS: BP_SYST 143
[2018-01-26] MEDS: CARVEDILOL 12.5 MG TABLET (COREG) PO SCH ×3 (08:00→17:28)
--- NOTE | 2018-01-26 08:00 | NUR ---
Note Pt resting in bed. Dr Baker at bedside speaking to pt and answering questions/concerns at this time. No SOB/resp distress or pain/discomfort noted at this time. IV in left hand intact and patent infusing IVF's well. Pt has Dimas catheter intact and draining well. Pt also has BSC for use. No needs noted. Call light within reach.
--- NOTE | 2018-01-26 08:15 | NUR ---
Note Pt OOB with PT ambulating in hallway with FWW and IV pole at this time. Pt tolerating ambulation well.
[2018-01-26] MEDS: NAPH,MB-DB/K PH,MBDB 250 MG TAB PO SCH ×5 (08:30→21:19)
[2018-01-26] MEDS: PROCHLORPERAZINE MALEATE 10 MG TABLET PO SCH ×4 (08:56→21:18)
[2018-01-26] MEDS: CITALOPRAM HYDROBROMIDE 20 MG TABLET PO SCH ×2 (08:56→09:00)
[2018-01-26] MEDS: ASPIRIN 325 MG TABLET (ECOTRIN) PO SCH ×2 (08:56→09:00)
[2018-01-26] MEDS: DEXAMETHASONE SOD PHOSPHATE 4 MG/ML VIAL IVP SCH ×2 (08:57→21:19)
[2018-01-26] MEDS: PREDNISONE 5 MG TABLET PO SCH ×3 (08:57→21:19)
[2018-01-26] MEDS: [UNRECOGNIZED DRUG - OTHER] PO SCH ×5 (08:57→21:20)
[2018-01-26] MEDS: POTASSIUM CHLORIDE 20 MEQ TAB.PRT.SR PO SCH ×4 (08:57→21:19)
[2018-01-26] MEDS: HYDROCORTISONE 10 MG TABLET (CORTEF) PO SCH ×4 (08:57→21:19)
--- NOTE | 2018-01-26 09:10 | NUR ---
Note Pt refused all his 09am and other am PO medications.
[2018-01-26] MEDS: NACL 0.9% 1,000 ML IV SCH ×2 (11:08→21:36)
--- NOTE | 2018-01-26 11:20 | NUR ---
Note Pt has been sleepy and drowsy most of the shift. Pt now states he wants to be left alone to rest "does not want any meals or PO medications". Pt next to nurses' station for close observation all shift. Pt's IVF's infusing well throughout the shift. Call light within reach.
[2018-01-26 12:47] VITALS: BP_SYST 129
--- NOTE | 2018-01-26 14:10 | NUR ---
Note Pt sat up in bed and ate a little of his lunch tray, stated his appetite was poor at this time. Pt did take his afternoon medications without difficulty. Pt does have difficulty swallowing his medications. Pt does want his medications crushed at this time. Pt resting in bed at this time. Denies any needs and call light within reach at this time.
--- NOTE | 2018-01-26 15:20 | NUR ---
PHYSICAL THERAPY CO-SIGN The Physical Therapy Progress Notes documented by Branding Machine Operator have been reviewed. I CONCUR W/BURRER HAND NOTE; CONT PER TX PLAN Reviewed/Co-Signed by: Estela Nunez PT Documentation Done by: ANIRUDH DE LA PAZ, PIETER Addendum: 01/26/18 at 1521 by Estela Nunez PT Amended: Links added.
--- NOTE | 2018-01-26 16:45 | NUR ---
Note Pt resting in bed, Dr Robles did come and do rounds early this afternoon. No needs noted. IVF's infusing well through left hand IVF's. Dimas catheter intact and draining well. Call light within reach.
[2018-01-26 17:21] VITALS: BP_SYST 140
--- NOTE | 2018-01-26 18:35 | NUR ---
Note Dr Robles back to floor, saw pt, assessment and questions/concerns were answered at this time. Pt denies any SOB/resp distress or pain/discomfort noted at this time. IV in left hand intact and patent infusing IVF's well. Dimas catheter intact and patent at this time. No needs noted. Pt took all PO medications this evening. Call light within reach.
[2018-01-26] MEDS ORDERED: LOPERAMIDE HCL 2 MG CAPSULE PO ONE (19:00)
--- NOTE | 2018-01-26 19:57 | NUR ---
OPENING NOTE RECEIVED REPORT FROM DAY SHIFT NURSE. PT IS IN BED RESTING. PT IS A/OX4. PT IS ON RA TOLERATING WELL. NO SOB NOTED. NO DISTRESS NOTED. PT HAS YEBOAH CATHETER DRAINING TO GRAVITY. PT HAS IV FLUIDS INFUSING AT 80ML/HR. PT DOES NOT WANT SCD'S AT THIS TIME. SAFETY MEASURES IN PLACE, BED TO LOWEST POSITION, BED ALARM IS ON, SIDE RAILS UPX3, CALL LIGHT WITHIN REACH. ENCOURAGED PT TO USE CALL LIGHT. PT VERBALIZED UNDERSTANDING. WILL CONTINUE TO MONITOR.
[2018-01-26 20:19] VITALS: BP_SYST 142
[2018-01-26 20:27] VITALS: BP_SYST 112
[2018-01-26] MEDS ORDERED: LOPERAMIDE HCL 2 MG CAPSULE PO SCH (21:00)
--- NOTE | 2018-01-26 21:31 | NUR ---
ROUNDS PT REFUSED K-DUR MEDICATION. PT ATTEMPTED TO TAKE TABLET BUT SAID IT WOULD MAKE HIM VOMIT AND DID NOT TAKE IT. PT TOOK ALL OTHER MEDICATION. PT IS WATCHING TV. PT ON RA TOLERATING WELL. PT DENIES ANY PAIN AT THIS TIME. SAFETY MEASURES IN PLACE, BED TO LOWEST POSITION, BED ALARM IS ON, SIDE RAILS UPX3, CALL LIGHT WITHIN REACH. WILL CONTINUE TO MONITOR.
--- NOTE | 2018-01-26 23:47 | NUR ---
ROUNDS PT IS IN BED SLEEPING. PT IS ON RA. NO SOB NOTED, NO DISTRESS NOTED. SAFETY MEASURES IN PLACE, BED TO LOWEST POSITION, SIDE RAILS UPX3, CALL LIGHT WITHIN REACH. WILL CONTINUE TO MONITOR.
[2018-01-27] VITALS: BP_SYST 124
--- NOTE | 2018-01-27 02:02 | NUR ---
ROUNDS PT IS IN BED RESTING. PT ON RA TOLERATING WELL. NO SOB NOTED, NO DISTRESS NOTED. YEBOAH CATHETER DRAINING TO GRAVITY. SAFETY MEASURES IN PLACE, BED TO LOWEST POSITION, BED ALARM IS ON, SIDE RAILS UPX3, CALL LIGHT WITHIN REACH. WILL CONTINUE TO MONITOR.
--- NOTE | 2018-01-27 03:26 | NUR ---
DIARRHEA PT HAD DIARRHEA. OFFERED PRN MEDICATION FOR DIARRHEA. PT REFUSED MEDICATION. WILL CONTINUE TO MONITOR.
--- NOTE | 2018-01-27 03:54 | NUR ---
ROUNDS PT IS SLEEPING IN BED. PT ON RA, NO SOB NOTED. NO DISTRESS NOTED. SAFETY MEASURES IN PLACE, BED TO LOWEST POSITION, SIDE RAILS UPX3, CALL LIGHT WITHIN REACH. WILL CONTINUE TO MONITOR.
--- NOTE | 2018-01-27 05:32 | NUR ---
ROUNDS PT IS IN BED WATCHING TV. PT ON RA, NO SOB NOTED. NO DISTRESS NOTED. ALL NEEDS MET AT THIS TIME. SAFETY MEASURES IN PLACE, BED TO LOWEST POSITION, SIDE RAILS UPX3, CALL LIGHT WITHIN REACH. WILL CONTINUE TO MONITOR.
--- NOTE | 2018-01-27 06:27 | NUR ---
CLOSING NOTE PT IS A/OX4. PT IS ON RA TOLERATING WELL. NO SOB NOTED. NO DISTRESS NOTED. PT HAS YEBOAH CATHETER DRAINING TO GRAVITY. PT HAS IV FLUIDS INFUSING AT 80ML/HR. PT REFUSED SCD'S DURING THE SHIFT. SAFETY MEASURES IN PLACE, BED TO LOWEST POSITION, BED ALARM IS ON, SIDE RAILS UPX3, CALL LIGHT WITHIN REACH. WILL ENDORSE TO DAY SHIFT NURSE.
[2018-01-27 08:00] VITALS: BP_SYST 142
[2018-01-27] MEDS: CARVEDILOL 12.5 MG TABLET (COREG) PO SCH ×2 (08:00→21:21)
--- NOTE | 2018-01-27 08:00 | NUR ---
A/OX4, NO DISTRESS NOTED. F/C DRAINING YELLOW URINE. PT HAS IV FLUIDS INFUSING AT 80ML/HR. REFUSED SCDS. POC IS REVIEWED; CALL LIGHT IN PLACE, BED LOCKED AT THE LOWEST POSITION, SIDE RAILS UPX3, CALL LIGHT WITHIN REACH. ENCOURAGED PT TO USE CALL LIGHT, HE VERBALIZED UNDERSTANDING.
[2018-01-27] MEDS: NAPH,MB-DB/K PH,MBDB 250 MG TAB PO SCH ×4 (08:30→21:20)
[2018-01-27] MEDS: DEXAMETHASONE SOD PHOSPHATE 4 MG/ML VIAL IVP SCH ×2 (08:54→21:21)
[2018-01-27] MEDS: ASPIRIN 325 MG TABLET (ECOTRIN) PO SCH (09:00)
[2018-01-27] MEDS: PROCHLORPERAZINE MALEATE 10 MG TABLET PO SCH ×3 (09:00→21:21)
[2018-01-27] MEDS: [UNRECOGNIZED DRUG - OTHER] PO SCH ×4 (09:00→21:20)
[2018-01-27] MEDS: PREDNISONE 5 MG TABLET PO SCH ×2 (09:00→21:20)
[2018-01-27] MEDS: HYDROCORTISONE 10 MG TABLET (CORTEF) PO SCH ×3 (09:00→21:20)
[2018-01-27] MEDS: POTASSIUM CHLORIDE 20 MEQ TAB.PRT.SR PO SCH ×2 (09:00→21:00)
[2018-01-27] MEDS: CITALOPRAM HYDROBROMIDE 20 MG TABLET PO SCH (09:00)
--- NOTE | 2018-01-27 10:00 | NUR ---
PHYSICAL THERAPY CO-SIGN The Physical Therapy Progress Notes documented by Before School have been reviewed. I concur with the documentation of this BRICK EXTRUDER OPERATOR. Plan: continue PT as per plan of care if he remains in this hospital. Reviewed/Co-Signed by: Terri Smith,PT Documentation Done by: Donnell Waters, BRICK EXTRUDER OPERATOR Addendum: 01/27/18 at 1510 by Terri Smith PT Amended: Links added.
--- NOTE | 2018-01-27 12:19 | NUR ---
Social Service Note: ELECTRICAL SIGN WIRER HELPER contacted [facility] ([phone]), and spoke to Roberta; Roberta states that [facility] is looking for a SNF bed and has a referral out to [facility]; ELECTRICAL SIGN WIRER HELPER asked Roberta to update ELECTRICAL SIGN WIRER HELPER once a bed was confirmed.
[2018-01-27 12:46] VITALS: BP_SYST 124
[2018-01-27] MEDS: NACL 0.9% 1,000 ML IV SCH ×2 (12:53→23:46)
--- NOTE | 2018-01-27 13:58 | NUR ---
Wound Re-Evaluation: Wound Consult ordered for Low Chris Score. Patient re-evaluated for a low Chris score of 16. Patient was awake, alert, oriented, and received in a [place] Bed with an IsoFlex MARK mattress with low air-loss therapy. Patient needs some assist to turn in bed. Skin is intact. Recommend continue: Encourage and assist patient as needed with repositioning side to side only every 2 hours with pillow support. Elevate, off-load and float bilateral heels with pillows. Offload pressure areas with pillows for pressure re-distribution. Perform skin care and monitor skin integrity Q shift. Use moisture barrier cream on moisture susceptible areas QID and PRN for soiling. Maintain patient on a low air-loss mattress. Skin assessment: Skin care performed by day shift nurse. Skin assessment provided by KSENIA Taylor. 1. Scrotal area: Erythema from IAD, present on admission. No erythema reported. 2. Bilateral Inguinal areas: Erythema from IAD, present on admission. No erythema reported. 3. Buttocks: Erythema from IAD. Recommend continue: Cleanse involved areas with mild soap and water. Pat dry. Apply antifungal powder to involved areas. Perform site care twice a day, and as needed for soiling.
--- NOTE | 2018-01-27 16:00 | NUR ---
patient is resting, no signs of distress noted.
--- NOTE | 2018-01-27 17:04 | NUR ---
D/C Planning: Called [facility] territory representative Chacha at cell # [phone] advised CM needs update urgently on issues with placement. Chacha will urgently respond regarding delay in placement. CM awaiting hospice placement. CM to follow up. Addendum: 01/27/18 at 1710 by Shivani Edwards RN D/C Planning: Received call back from Chacha with [facility] advised placement possibility in [facility] awaiting final acceptance advised if they need additional assistance to contact nursing or CM after hours. Updated nursing.
--- NOTE | 2018-01-27 17:18 | NUR ---
Patient refused 5 pm medication despite explanations of benefits.
[2018-01-27 17:55] VITALS: BP_SYST 143
--- NOTE | 2018-01-27 18:06 | NUR ---
Patient is eating dinner; no signs of distress noted at this time.
--- NOTE | 2018-01-27 19:20 | NUR ---
PATIENT WOULD LIKE TO TAKE COREG LATER ON TONIGHT, AT AROUND 8-9PM. WILL INFORM THE NEXT SHIFT.
--- NOTE | 2018-01-27 19:26 | NUR ---
OPENING NOTE RECEIVED REPORT FROM DAY SHIFT NURSE. PT IS IN BED SLEEPING. PT IS ON RA, NO SOB NOTED. NO DISTRESS NOTED. PT HAS YEBOAH CATHETER DRAINING TO GRAVITY. PT HAS IV FLUIDS INFUSING AT 80ML/HR. PT DOES NOT HAVE SCD'S ON. SAFETY MEASURES IN PLACE, BED TO LOWEST POSITION, BED ALARM IS ON, SIDE RAILS UPX3, CALL LIGHT WITHIN REACH. WILL CONTINUE TO MONITOR.
[2018-01-27 20:45] VITALS: BP_SYST 148
--- NOTE | 2018-01-27 21:30 | NUR ---
ROUNDS PT IS IN BED RESTING. PT REFUSED K-DUR MEDICATION. PT TOOK BP MEDICATION SCHEDULED FOR 1800. BP WAS 148/102. PT DID NOT WANT TO TAKE BP MEDICATION AT 1800. PER SHIFT REPORT, PT TOLD MORNING SHIFT RN PT WANTED TO TAKE IT LATER IN THE NIGHT. PT REFUSES SCD'S. EXPLAINED TO PT THE REASON FOR SCD'S AND PT STILL REFUSES. SAFETY MEASURES IN PLACE, BED TO LOWEST POSITION, BED ALARM IS ON, SIDE RAILS UPX3, CALL LIGHT WITHIN REACH. WILL CONTINUE TO MONITOR.
--- NOTE | 2018-01-27 23:25 | NUR ---
ROUNDS PT IS SLEEPING. NO DISTRESS NOTED. SAFETY MEASURES IN PLACE, BED TO LOWEST POSITION, BED ALARM IS ON, SIDE RAILS UPX3, CALL LIGHT WITHIN REACH. WILL CONTINUE TO MONITOR.
[2018-01-28 00:08] VITALS: BP_SYST 111
--- NOTE | 2018-01-28 01:40 | NUR ---
ROUNDS PT IS RESTING IN BED. NO SOB NOTED. PT IS EATING PUDDING. PT REFUSED SCD'S TO LOWER LEGS. PT HAS YEBOAH CATHETER AND IS DRAINING TO GRAVITY. ALL NEEDS MET AT THIS TIME. SAFETY MEASURES IN PLACE, BED TO LOWEST POSITION, BED ALARM IS ON, SIDE RAILS UPX3, CALL LIGHT WITHIN REACH. WILL CONTINUE TO MONITOR.
--- NOTE | 2018-01-28 03:19 | NUR ---
IV RE-INSERTION: PT PULLED OUT IV. PT STATES HE WANTS TO GO HOME AND PULLED HIS IV. EXPLAINED PT HE NEEDS IV. RESTARTED IV ON LEFT FOREARM, 22G. RESUMED IVF AT 80ML/HR. NO DISTRESS NOTED. SAFETY MEASURES IN PLACE, BED TO LOWEST POSITION, BED ALARM IS ON, SIDE RAILS UPX3, CALL LIGHT WITHIN REACH. WILL CONTINUE TO MONITOR.
--- NOTE | 2018-01-28 06:55 | NUR ---
CLOSING NOTE PT STATED HE HAD A HEADACHE EARLIER. OFFERED PRN TYLENOL AND PT REFUSED. GAVE COLD PACK TO PT AND PROVIDED COMFORT MEASURES. PT IS IN BED SLEEPING NOW. PT IS ON RA, NO SOB NOTED. NO DISTRESS NOTED. PT HAS YEBOAH CATHETER DRAINING TO GRAVITY. PT HAS IV FLUIDS INFUSING AT 80ML/HR. PT DOES NOT HAVE SCD'S ON. PT REFUSED SCD'S ALL SHIFT. SAFETY MEASURES IN PLACE, BED TO LOWEST POSITION, BED ALARM IS ON, SIDE RAILS UPX3, CALL LIGHT WITHIN REACH. WILL ENDORSE TO DAY SHIFT NURSE.
[2018-01-28] MEDS: CARVEDILOL 12.5 MG TABLET (COREG) PO SCH ×2 (08:00→18:00)
[2018-01-28] MEDS: NAPH,MB-DB/K PH,MBDB 250 MG TAB PO SCH ×3 (08:30→18:00)
[2018-01-28] MEDS: HYDROCORTISONE 10 MG TABLET (CORTEF) PO SCH ×2 (09:00→15:43)
[2018-01-28] MEDS: PREDNISONE 5 MG TABLET PO SCH (09:00)
[2018-01-28] MEDS: POTASSIUM CHLORIDE 20 MEQ TAB.PRT.SR PO SCH (09:00)
[2018-01-28] MEDS: PROCHLORPERAZINE MALEATE 10 MG TABLET PO SCH ×2 (09:00→15:43)
[2018-01-28] MEDS: [UNRECOGNIZED DRUG - OTHER] PO SCH ×3 (09:00→17:00)
[2018-01-28] MEDS: CITALOPRAM HYDROBROMIDE 20 MG TABLET PO SCH (09:00)
--- NOTE | 2018-01-28 09:30 | NUR ---
PATIENT REFUSED MOST OF THE 8-9AM MEDS DESPITE EXPLANATIONS, AND SAID "DON'T BOTHER ME, I WANT TO SLEEP."
[2018-01-28] MEDS: DEXAMETHASONE SOD PHOSPHATE 4 MG/ML VIAL IVP SCH (10:49)
[2018-01-28] MEDS: NACL 0.9% 1,000 ML IV SCH (10:53)
--- NOTE | 2018-01-28 11:28 | NUR ---
patient has a large, loose BM.
[2018-01-28 11:40] VITALS: BP_SYST 118
--- NOTE | 2018-01-28 13:28 | NUR ---
patient is seen walking with PT in the room.
--- NOTE | 2018-01-28 15:00 | NUR ---
Social Service Note: SHELLACKER has confirmed with Chacha morales [facility] ([phone]) that a nurse is coming out at 3:30pm to admit pt to hospice services and arrange transport for pt to [facility].
[2018-01-28 15:04] VITALS: BP_SYST 115
--- NOTE | 2018-01-28 15:16 | NUR ---
PHYSICAL THERAPY CO-SIGN The Physical Therapy Progress Notes documented by Deep Submergence Vehicle Crewmember have been reviewed. Weekly summary: Patient is slowly making good and steady progress with PT in terms of his improved mobility activities and increased distance made during gait training. However, his safety is still compromised due to his poor cognition & mentation making him a high risk for falls. Plan: continue PT as per plan of care 5x a week x 1 week. I concur with the documentation of this CHANNEL REBUILDER. Reviewed/Co-Signed by: Terri Smith,PT Documentation Done by: Donnell Waters, CHANNEL REBUILDER Addendum: 01/28/18 at 1518 by Terri Smith PT Amended: Links added.
--- NOTE | 2018-01-28 15:30 | NUR ---
SERGEI, REP FROM [employer], WILL ARRANGE D/C PLANNING.
[2018-01-28] MEDS: ASPIRIN 325 MG TABLET (ECOTRIN) PO SCH (15:43)
[2018-01-28 16:21] VITALS: BP_SYST 125
--- NOTE | 2018-01-28 18:00 | NUR ---
PATIENT REFUSED THE 5-6PM MEDS DESPITE EXPLANATION OF BENEFITS.
--- NOTE | 2018-01-28 20:17 | NUR ---
PT TRANSFERRED Report given to February at [facility]. Transfer packet with Transfer Orders and Medication Reconciliation form given to EMT with report. Exitcare provided. [facility] ID band removed, replaced with ID band with pt's name and . F/C kept. All belongings sent with patient. Patient left floor via gurney escorted by EMT in no distress.
== END 2018-01-28 19:40 | DRG 871 ==
LOC: SED 15:13 → STU 17:50 → SMU 01-24 21:56
PROVIDERS: ADMIT Internal Medicine; ATTEND Internal Medicine
DX: A41.9 Sepsis, unspecified organism (principal); E43 Unspecified severe protein-calorie malnutrition; G93.41 Metabolic encephalopathy; N17.9 Acute kidney failure, unspecified; D89.9 Disorder involving the immune mechanism, unspecified; C74.90 Malignant neoplasm of unspecified part of unspecified adrenal gland; E27.40 Unspecified adrenocortical insufficiency; F44.4 Conversion disorder with motor symptom or deficit; N39.0 Urinary tract infection, site not specified; E86.0 Dehydration; N18.9 Chronic kidney disease, unspecified; K52.9 Noninfective gastroenteritis and colitis, unspecified; R62.7 Adult failure to thrive; D63.8 Anemia in other chronic diseases classified elsewhere; F32.9 Major depressive disorder, single episode, unspecified; I12.9 Hypertensive chronic kidney disease with stage 1 through stage 4 chronic kidney disease, or unspecified chronic kidney disease; Z90.5 Acquired absence of kidney; Z88.8 Allergy status to other drugs, medicaments and biological substances; Z91.010 Allergy to peanuts; Z79.2 Long term (current) use of antibiotics; Z79.899 Other long term (current) drug therapy; Z68.25 Body mass index [BMI] 25.0-25.9, adult
CPT/HCPCS: 36415; 71045; 80048; 80053; 81000-TC; 83605; 83735-TC; 84100-TC; 84484; 85025; 85610-TC; 85730-TC; 87040-TC; 87086; 96361; 96365; 97110-GP; 97116-GP; 97530-GP; 99291; J0696; J1100; J1956; J2060; J2405; J2765; J3475; J3480; J3490; J7030; J7050; J7060; J7512; J8540; Q0164